=== PATIENT | female | born 1940 | race Caucasian/White ===

== ENCOUNTER → 2019-06-21 11:11 | Outpatient (CLI) | payer MEDICARE, OTHER, SELFPAY ==
--- NOTE | 2019-06-21 11:24 | DI.RAD.S_ITS ---
PROCEDURE: XR LUMBAR SPINE MIN 4V INDICATIONS: Chronic progressive low back pain TECHNIQUE: 5 views of the lumbar spine were acquired. COMPARISON: None. FINDINGS: Bones: 5 nonrib-bearing vertebrae are present. There is normal bony alignment. No vertebral body compression fractures. No suspicious bony lesions. Mild to moderate degenerative disc disease is present along the thoracolumbar junction and the lumbosacral spine. There is moderate to moderately severe facet osteoarthritis becoming progressively more prominent through the middle and lower thirds of the lumbosacral spine. Spinal and foraminal stenosis would be expected in this circumstance from L3 inferiorly. Soft tissues: Overlying bowel gas pattern is normal. No suspicious soft tissue calcifications. Oblique images: No pars defects. IMPRESSION: Progressively greater degenerative changes from the middle through the distal thirds of the lumbosacral spine, and both spinal and foraminal stenosis likely is present from L3 inferiorly. Dictated by: Michael Hernandez M.D. on 06/21/2019 at 12:42 Approved by: Michael Hernandez M.D. on 06/21/2019 at 12:43
== END ==
PROVIDERS: PCP Family Medicine; Referring Provider Physical Medicine & Rehabilitation; Visit Provider Physical Medicine & Rehabilitation
DX: M54.5 Low back pain (principal); M51.35 Other intervertebral disc degeneration, thoracolumbar region; M51.37 Other intervertebral disc degeneration, lumbosacral region; M47.817 Spondylosis without myelopathy or radiculopathy, lumbosacral region; G89.29 Other chronic pain
CPT/HCPCS: 72110

== ENCOUNTER → 2019-07-01 17:00 | Outpatient (CLI) | payer MEDICARE, OTHER, SELFPAY ==
--- NOTE | 2019-07-01 17:02 | DI.MRI.S_ITS ---
PROCEDURE: MR LUMBAR SPINE WO CON INDICATIONS: Progressive axial low back pain TECHNIQUE: Noncontrast sagittal T1 spin echo and T2 fast echo, sagittal STIR, axial T1 and T2 fast spin echo through the lumbar spine. In cases with scoliosis, additional coronal T2 fast spin echo may be performed. COMPARISON: None. FINDINGS: Image quality: Excellent. Alignment and Curvature: Mild levocurvature noted. Trace anterolisthesis of L3 on L4 Bone Marrow: Multilevel degenerative endplate sclerosis and spurring. Diffuse facet arthropathy. No acute vertebral body compression fractures. Spinal Cord: Conus medullaris terminates at the L1 level. Visualized cord demonstrates normal signal and size. Paraspinous Soft Tissues: No paravertebral masses. Diffuse lumbar epidural lipomatosis noted. There is severe L3-L4 facet arthropathy with multiple synovial cysts and joint effusions. T2 hyperintense presumed left renal cysts although technically nonspecific. There is nonspecific, dependent posterior subcutaneous soft tissue edema from level of L1-L5. L1-L2: Mild central canal narrowing. Lateral recesses appear grossly patent. L2-L3: Mild central canal narrowing. Partial effacement of both lateral recesses with bilaterally symmetric appearance. Moderate left foraminal stenosis with nerve root compression. No right foraminal narrowing. L3-L4: Severe central canal stenosis. Partial effacement of both lateral recesses with bilaterally symmetric appearance. Severe right foraminal stenosis with nerve root compression. Moderate left foraminal stenosis with questionable nerve root compression L4-L5: Mild central canal narrowing. Partial effacement of both lateral recesses with bilaterally symmetric appearance. Mild bilateral foraminal stenosis. L5-S1: Mild central canal narrowing. Partial effacement of both lateral recesses with bilaterally symmetric appearance. No foraminal stenoses IMPRESSION: Diffuse lumbar spondylosis and facet arthropathy. Mild levocurvature. Trace anterolisthesis of L3 on L4 Severe L3-L4 central canal stenosis, and subarticular narrowing bilaterally. Multilevel bilateral foraminal stenoses, as detailed above most pronounced at L2-L3 (left) and L3-L4 (right greater than left. Dictated by: Nico Hayden M.D. on 07/02/2019 at 11:24 Approved by: Nico Hayden M.D. on 07/02/2019 at 11:32
== END ==
PROVIDERS: PCP Family Medicine; Referring Provider Physical Medicine & Rehabilitation; Visit Provider Physical Medicine & Rehabilitation
DX: M54.5 Low back pain (principal); M47.816 Spondylosis without myelopathy or radiculopathy, lumbar region; M48.061 Spinal stenosis, lumbar region without neurogenic claudication
CPT/HCPCS: 72148

== ENCOUNTER → 2019-07-18 14:31 | Outpatient (CLI) | payer MEDICARE, OTHER, SELFPAY ==
--- NOTE | 2019-07-18 | DI.NM.S_ITS ---
PROCEDURE: NM KIM PERF SPECT SINGLE STUDY Exercise myocardial perfusion SPECT with gated imaging and ejection fraction RADIOPHARMACEUTICAL: 25.1 mCi Tc-99m sestamibi IV at peak exercise. INDICATIONS: Syncope and collapse TECHNIQUE: Radiopharmaceutical was injected at peak stress test. SPECT images were obtained, with perfusion images in short axis, horizontal long axis, and vertical long axis views. Gated images were reviewed using Glopho software. COMPARISON: None. CARDIAC STRESS: A pharmaceutical nuclear stress test was obtained using lexiscan 0.4mg IV X1. Hemodynamic data: Symptoms: Patient denied anginal chest pain during exercise. EKG: No diagnostic changes of ischemia; no ectopy. FINDINGS: Raw data: There is good labeling of myocardium by radiotracer. No significant motion artifacts. Nsad-qz-ivnqd ratio is 0.48 (normal is less than 0.38 for sestamibi tracer, and less than 0.50 for thallium tracer). Left ventricular function: Gated images demonstrate normal left ventricle wall thickening. No segmental wall motion abnormalities. Left ventricle end diastolic volume is 74 mL. Left ventricle stress ejection fraction is 76%; normal values are above 45%. Myocardial perfusion: There is normal distribution of activity in the left and right ventricular myocardium, without focal perfusion defects. IMPRESSION: Low risk, normal pharmaceutical nuclear stress test. Consider Echo to rule out valvular heart disease given elevated vbtr-ik-ruvvt ratio. 1) No perfusion evidence of ischemia or infarction. 2) Normal left ventricular size, wall motion, and systolic function (EF post stress 76%). 3) No ECG evidence of ischemia. 4) No angina during the study. 5) No prior nuclear stress test available for comparison. Dictated by: Carla So MD on 07/18/2019 at 17:43 Approved by: Carla So MD on 07/18/2019 at 17:46
--- NOTE | 2019-07-18 15:48 | PM.TREADMILL ---
Cardiac Stress Test Report Referral & Results Date Patient Seen: 07/18/19 Time Patient Seen: 15:49 Requesting provider: Moody Regalado Indication: syncope and collapse Rest ECG: sinus rhythm Procedure Note: After Lexiscan injection had minimal dyspnea, no chest discomfort Baseline ECG sinus rhythm No significant ST changes on ECG after Lexiscan injection; no ectopy No reversal agent needed Impression: Normal Lexiscan stress test Please note: Actual ECG tracings can be found in the PACS system.
== END ==
PROVIDERS: PCP Family Medicine; Referring Provider Family Medicine; Visit Provider Family Medicine
DX: R55 Syncope and collapse (principal)
CPT/HCPCS: 78451; 93017; A9502; J2785

== ENCOUNTER → 2019-10-11 15:47 | Outpatient (CLI) | payer MEDICARE, OTHER, SELFPAY ==
[2019-10-11 16:08] LABS: Bacteria Urine None Seen; RBC Urine None Seen (0-5/HPF)
[2019-10-11 16:42] LABS: Appearance Urine UA CLEAR; Bilirubin Urine UA NEGATIVE (NEGATIVE); Color Urine UA YELLOW; Glucose Urine UA NEGATIVE (Negative); Ketones Urine UA NEGATIVE (NEGATIVE); Leukocyte Esterase Urine UA 3+ (NEGATIVE); Nitrite Urine UA NEGATIVE (Negative); Occult Blood Urine UA TRACE-LYSED (Negative); Protein Urine UA NEGATIVE (Negative); Urobilinogen Urine UA 0.2 E.U./dL (0.2)
[2019-10-11 16:45] LABS: Add Manual Diff / Slide Review NO; Basophils Absolute Auto 100 /uL (0-100); Basophils Percent Auto 1.3 % (0-2); Eosinophils Absolute Auto 200 /uL (0-450); Eosinophils Percent Auto 2.9 % (2-4); Hematocrit 42.9 % (36-46); Hemoglobin 14.6 g/dL (12.0-16.0); Lymphocytes Absolute Auto 2000 /uL (1100-4500); Lymphocytes Percent Auto 24.4 % (25-40); Mean Corpuscular Hemoglobin 32.2 PG (26-34); Mean Corpuscular Volume 94.8 fL (80-100); Monocytes Absolute Auto 700 /uL (0-900); Neutrophils Absolute Auto 5200 /uL (1500-7000); Neutrophils Percent Auto 63.4 % (50-75); Platelet Count 288 X10^3/uL (150-400); Red Blood Cell Count 4.53 X10^6/uL (4.0-5.2); Red Cell Distribution Width 13.6 % (11.6-14.8); White Blood Cell Count 8.2 X10^3/uL (4.5-11.0)
[2019-10-11 16:46] LABS: Culture Indicated Urine Specimen Cultured; WBC Urine 10-30/HPF (0-5/HPF)
[2019-10-11 16:52] LABS: Hemoglobin A1C% w Est Avg Glu 4.9 % (4.0-6.0)
[2019-10-11 17:10] LABS: BUN Creatinine Ratio 14.9 (6-22); Blood Urea Nitrogen 17 mg/dL (7-17); Calcium 10.1 mg/dL (8.4-10.2); Carbon Dioxide 21 mmol/L (22-32); Chloride 105 mmol/L (98-107); Estimated Glomerular Filt Rate 45.9 mL/min (>60); Glucose 91 mg/dL (80-110); HEMOLYSIS < 15 (0-50); Potassium 4.3 mmol/L (3.4-5.1); Sodium 136 mmol/L (137-145)
== END ==
PROVIDERS: PCP Family Medicine; Referring Provider Orthopaedic Surgery; Visit Provider Orthopaedic Surgery
DX: Z01.818 Encounter for other preprocedural examination (principal); R73.9 Hyperglycemia, unspecified; N39.0 Urinary tract infection, site not specified
CPT/HCPCS: 36415; 80048; 81001; 83036; 85025; 87086; 93005

== ENCOUNTER → 2019-10-13 14:04 | Outpatient (CLI) | payer MEDICARE, OTHER, SELFPAY ==
[2019-10-14 02:38] LABS: COVID19 Sendout Not Detected (Not Detect)
== END ==
PROVIDERS: PCP Family Medicine; Visit Provider Physician Assistant
DX: Z01.812 Encounter for preprocedural laboratory examination (principal)
CPT/HCPCS: 87635

== ENCOUNTER 2019-10-16 06:09 | Inpatient (IN) | payer MEDICARE, OTHER, SELFPAY ==
[2019-10-15 07:34] VITALS: BMI 38.1
[2019-10-16] VITALS (15 sets, daily range): BP systolic 99–141; BP diastolic 51–91; PULSE 50–77; RESP 11–20; TEMP 35.6–36.8; O2SAT 92–98; BMI 38.1
--- NOTE | 2019-10-16 | DI.RAD.S_ITS ---
PROCEDURE: XR PELVIS 1-2V INDICATIONS: INNER OP TECHNIQUE: Intra-operative view of the pelvis and hip acquired. COMPARISON: None. FINDINGS: Bones: Intraoperative devices prior to placement of arthroplasty prostheses are in expected positions. No fractures or suspicious bony lesions. Soft tissues: Overlying surgical retractors are present, along with other intraoperative changes. IMPRESSION: Normal intraoperative examination. Dictated by: Jimmy Stout M.D. on 10/16/2019 at 8:29 Approved by: Jimmy Stout M.D. on 10/16/2019 at 8:29
--- NOTE | 2019-10-16 06:00 | DI.RAD.S_ITS ---
PROCEDURE: XR HIP W PEL IF DONE LT 2V INDICATIONS: ALEXANDER TECHNIQUE: AP pelvis and lateral view of the left hip acquired. COMPARISON: [facility] [place], CR, XR PELVIS WITH LATERAL HIP LEFT, 07/17/2019, 14:43. [facility], CR, XR PELVIS 1-2V, 10/16/2019, 9:00. FINDINGS: Bones: Patient is status post left hip arthroplasty, with hardware components in expected positions. The hip joint appears congruent. The visualized bony structures appear intact. Soft tissues: Overlying postoperative changes are noted. No suspicious soft tissue densities. Left surgical drain. IMPRESSION: Satisfactory appearance of the left hip total arthroplasty. Dictated by: El Allen M.D. on 10/16/2019 at 10:31 Approved by: El Allen M.D. on 10/16/2019 at 10:33
[2019-10-16] MEDS: PREGABALIN 75 MG CAPSULE PO (07:02)
[2019-10-16] MEDS: CELECOXIB 200 MG CAPSULE PO (07:02)
[2019-10-16] MEDS: ACETAMINOPHEN 325 MG TABLET 975 MG PO (07:02)
[2019-10-16] MEDS: VANCOMYCIN 1,000 MG/200 ML PIGGYBACK 200 MG IV (07:26)
[2019-10-16] MEDS: LACTATED RINGERS 1,000 ML 42 ML IV ×2 (07:27→10:22)
--- NOTE | 2019-10-16 07:37 | PM.PREOP ---
Pre-operative Note COVID-19 COVID-19 status: Negative Interval Note History & Physical reviewed/Exam performed by Physician: Yes Changes to H&P: No
--- NOTE | 2019-10-16 07:37 | PM.OP.1 ---
Operative Date/Time/Diagnoses Date of procedure: 10/16/19 Time of procedure: 07:57 Pre-op diagnosis: Severe left hip OA Post-op diagnosis: same Procedure & Clinicians Procedure: Left total hip arthroplasty posterior approach Same procedure as scheduled: Yes Indications: The patient has had progressively worsening left hip pain with radiographic changes consistent with arthritis. Non-operative management has failed and the patient has requested total hip replacement. The risks, benefits and alternatives to surgery were discussed with the patient prior to proceeding. Risks discussed included, but were not limited to, failure to relieve pain, leg length discrepancy, dislocation, stiffness, infection, nerve damage, deep venous thrombosis, pulmonary embolism, stroke, coma, heart attack, permanent paralysis and , as well as the potential need for eventual revision of the prosthetic. Surgeon: Marcy Cohn Supervisor Laboratory Animal Facility: [facility] Anesthesia Type: General and Spinal Operative Notes Findings: Severe left hip OA, good stability, slightly soft bone Closure Type: primary Specimen(s): none sent Prosthetic devices, grafts, tissues, transplants, or devices: 52 mm R3 Cohn [employer] Nephew cup, size 6 standard offset anthology, +0 by 36 head Applied: drain(s) Estimated Blood Loss (mL): 250 Blood products transfused: none Procedure in detail: The patient was seen in the pre-operative area, where the patient identified the left hip as the operative site and this was marked with my initials. The patient received pre-operative antibiotics and was taken to the operating room and placed on the operative table in the right lateral decubitus position after satisfactory anesthesia. A timekeeper supervisor out was performed. The left leg was prepared from the ankle to the iliac crest with ChloroPrep in the usual fashion and draped through sterile drapes. The hip was approached through an approximately 20 cm incision centered over the greater trochanter and curving gently posteriorly as it went proximally. This was carried sharply to the fascia binh, which was divided and retracted with a self retaining retractor. The trochanteric bursa was excised with care being taken to avoid the sciatic nerve, which was identified and protected throughout the case. The short external rotators were incised and the capsulomuscular flap was raised and tagged for later repair. The hip was dislocated, and a femoral neck osteotomy performed approximately 15 mm above the lesser trochanter. Retractors were placed around the femur. The canal was opened with a box cutting osteotome, followed by a T handled reamer and a lateralizing reamer. The chili pepper broach was then used, followed by sequential broaching until there was good stability of the broach in the femur. Retractors were placed to expose the acetabulum. The labrum and central soft tissues were removed. Reaming was performed initially going up in 2 mm increments, then 1 mm increments until good bite was obtained with an odd sized reamer. The cup 1 mm larger than the last reamer was then inserted using the appropriate anteversion guides. A trial neutral liner was placed. The broach was placed in the canal. A trial head and neck were then placed and the hip relocated and checked for leg length and stability. An intraoperative film confirmed the component position and no evidence of fracture. The patient was stable in the position of sleep, of squatting, and could be put through a range of motion with 45 degrees internal rotation without dislocation. At 90 degrees flexion, internal rotation to 80 was possible before dislocation. This was felt to be satisfactory and the appropriate components were opened, and the trials were removed. The acetabular liner was impacted into position. The final stem was then impacted into the prepared femoral canal. The hip was meticulously irrigated with normal saline. Finally the femoral head was impacted onto the stem. The acetabulum was cleared of all material and the hip relocated one final time. The capsulomuscular flap was then repaired to the greater trochanter though an awl hole using the tag sutures. The short external rotators were repaired with a nonabsorbable suture. A deep drain was placed and brought out anteriorly. The fascia binh was closed with Vicryl. The subcutaneous layer was closed with barbed sutures and SteriStrips. An Aquacel Ag dressing was applied and the patient was taken to recovery having tolerated the procedure well. Complications: none Post-operative Condition: stable Disposition: Acute Care Plan for aftercare: The patient will be maintained on a standard total hip replacement protocol with weight bearing as tolerated and posterior hip precautions. The patient will receive Aspirin and sequential compression devices for DVT prophylaxis. The patient will be discharged home when safe for the home environment.
[2019-10-16] MEDS: CEFAZOLIN 2 GM/100 ML FROZ.PIGGY IV ×3 (08:05→23:59)
--- NOTE | 2019-10-16 08:31 | SUR.OPER ---
Lateral on padded OR bed. Gel axillary roll. Arms secured on padded armboard with pillow supporting top arm. Padded hip positioner braces x4 - anterior and posterior chest and pelvis. Additional gel pad used anterior pelvis. Gel pad under bottom leg from knee to foot and secured with tape over sheet.
[2019-10-16] MEDS: BUPIVACAINE LIPOSOME 266 MG/20 ML VIAL INJ (08:43)
[2019-10-16] MEDS: BUPIVACAINE 0.25% W/ EPI 30 ML VIAL 60 ML INJ (08:43)
[2019-10-16] MEDS: TRANEXAMIC ACID 1,000 MG VIAL 2000 MG INJ ×2 (08:44→09:30)
--- NOTE | 2019-10-16 11:00 | SUR.PHASEI ---
Patient taken up to room 212 with all belongings. Left in stable condition with receiving RN at bedside.
[2019-10-16] MEDS: LACTATED RINGERS 1,000 ML 125 ML IV ×2 (11:38→20:07)
--- NOTE | 2019-10-16 11:54 | PC.NURSE ---
Pt to room 212 via bed from PACU post-L. ALEXANDER. Pt denies pain, nausea, or shortness of breath. Pt states her legs both still feel a bit numb but she is able to lift both legs and wiggle her toes. Pt oriented to room, call light, bed controls, and tv controls. Bed alarm on-Pt agrees to not get up without assistance. Encouraged deep breathing exercises and ankle waves. SCD's on and running. Initally Pt had moderately severe shivering but that has now stopped after application of warm blankets. Pt denies needs at this time and agrees to call for assistance as needed.
[2019-10-16] MEDS: IBUPROFEN 400 MG TABLET PO ×4 (12:47→23:59)
[2019-10-16] MEDS: ACETAMINOPHEN 325 MG TABLET 650 MG PO ×2 (14:03→20:06)
[2019-10-16] MEDS: OXYCODONE IR 5 MG TABLET PO (14:03)
--- NOTE | 2019-10-16 15:15 | PT.IIE ---
Current Diagnoses Unilateral primary osteoarthritis, left hip (10/16/19) Surgery Performed Operation Date: 10/16/19 07:45 Actual Procedures p Total Hip Arthroplasty(Left) - Marcy Cohn MD Surgical History (Last Updated 10/15/19 @ 08:10 by Hannah Reynaga RN) H/O: hysterectomy (Acute) History of arthroplasty of left knee (Acute) History of arthroplasty of right knee (Acute) History of cholecystectomy (Acute) Hx of bilateral cataract extraction (Acute) Hx of dilation and curettage (Acute) Medical History (Last Updated 10/15/19 @ 08:14 by Hannah Reynaga RN) Acid reflux (Acute) Degenerative joint disease (DJD) of hip (Acute) Easy bruisability (Acute) Facet arthropathy, lumbosacral (Acute) First degree AV block (Acute) Gait instability (Acute) HLD (hyperlipidemia) (Acute) HTN (hypertension) (Acute) Lumbar stenosis (Acute) Postural hypotension (Acute) Shortness of breath (Acute) Syncopal episodes (Acute) Physical Therapy Inpatient Evaluation/Re-Eval M1 PT/OT-IP Prior Functional Status Start: 10/16/19 17:50 Freq: NEEDED Status: Active Protocol: Document 10/16/19 15:15 AB (Rec: 10/16/19 18:12 AB [id number]) Medical Review Prior Functional Status Medical History Reviewed Yes Communication able to make needs known but requires time to respond and to complete tasks; pt stated that she is oozy from the medications Mobility and Gait pt stated that she is modified independent with all mobilities and ambulation without AD but has been using a SPC for the last 2 weeks due to L hip pain Social History Household Members family,other Living Arrangements House Number of Floors (Floors) 3 or More Floors Number of Stairs To Enter/Railing? has no step to enter from the garage: brother stays on this level has 7 steps with L rail ascending to get to kitchen level and has another 7 steps with R rail ascending to bedroom level. Home Environment High Toilet,Walk in Shower Home Equipment Front Wheel Walker,Four Wheel Walker,Straight Cane,Raised Toilet Seat w/Armrests,Shower Seat without Backrest,Hand Held Shower,Eyelet Riveter Employment Status Retired Additional Social History Comment pt stated her brother will be able to help her at home but prefers that no assistance with dressing, toileting and showering needs M2 PT-IP Current Condition Start: 10/16/19 17:50 Freq: NEEDED Status: Active Protocol: Document 10/16/19 15:15 AB (Rec: 10/16/19 18:12 AB [id number]) Physical Therapy Current Condition Current Condition Evaluation Date 10/16/19 Treatment Diagnosis s/o L ALEXANDER posterior approach; difficulty in walking Onset Date 10/16/19 Precautions Posterior Hip Precautions No Hip Flexion > 90 degrees,No Hip Internal Rotation,No Hip Adduction Weight Bearing Status Weight Bearing Status Weight Bear as Tolerated Allowed Weight Bearing Amount (enter % LLE WBAT or #) (%) M3 PT-IP Subjective Start: 10/16/19 17:50 Freq: NEEDED Status: Active Protocol: Document 10/16/19 15:15 AB (Rec: 10/16/19 18:12 AB [id number]) Subjective Physical Therapy Visit Type Type Initial Evaluation Visit Start Time 15:15 Visit Stop Time 16:03 Total Visit Minutes 48 Number of ENGLISH INSTRUCTOR Visits 0 Physical Therapy Visit Comments Patient Comments agreeable to do PT Therapy Pain Assessment Pain When Pain Assessed At Rest Pain Present Pain Present Pain Reported Location Left Hip Intensity 5 Scale Used Numeric (0 - 10) Pain Management Techniques Apply Cold,Modification of Treatment,Re-positioning, Timing of Activity with Medications M4 PT-IP Mobility and Gait Start: 10/16/19 17:50 Freq: NEEDED Status: Active Protocol: Document 10/16/19 15:15 AB (Rec: 10/16/19 18:12 AB [id number]) PT-Bed Mobility Assessment Supine to Sit Supine to Sit Standby Assistance,1 Person Assistance PT-Transfer Assessment Sit to and From Stand Sit to and from Stand Minimal Assistance,1 Person Assistance,Use of Upper Extremities Equipment Transfer Assistive Device Gait Belt,Front Wheeled Walker Orthotic/Prosthetic Devices or Brace: No Transfers Transfer Destination Toilet Transfer Technique ambulated using FWW Transfer Ability Level of Assist Minimal Assistance,1 Person Assistance,Use of Upper Extremities Comments Mobility Comments reviewed posterior hip precautions with pt and pt requires cues to recall. pt stated that she feels foggy and oozy due to the medications. completed supine to sit SBA and pt was able to sit on EOB CGA. pt tends to cross her LE and needs constant reminders regarding her hip precautions. completed sit to stand min A and cues and ambulated using FWW to the toilet min A and cues. required mod A for sit to stand from the toilet using grab bar and pt again has to be reminded of her hip precautions. pt ambulated back to the bed. completed sit to supine SBA and positioned in bed. call light and table placed within reach. Gait Assessment Gait Gait Assistance Required: Minimum Assistance,1 Person Assist Distance (Feet) 12 Able to Maintain Weight Bearing Status Yes During Gait Assistive Devices Assistive Device Gait Belt,Front Wheeled Walker Orthotic/Prosthetic Devices or Brace: No Gait Deviations General Gait Pattern Antalgic,Decreased Stride Length,Decreased Feet Clearance Factors Limiting Gait Function Factors Limiting Gait Function Decreased Activity Tolerance, Decreased Strength,Difficulty Following Directions,Limited Range of Motion,Pain,Poor Balance,Poor Safety Awareness Comments Gait Comments pls refer to mobility section for details PT-Balance Assessment Sitting Balance and Reactions Static Sitting Balance Ability Good Dynamic Sitting Balance Ability Fair Standing Balance and Reactions Static Standing Balance Ability Fair Dynamic Standing Balance Ability Poor Device Used FWW M5 PT-IP Objective Assessments Start: 10/16/19 17:50 Freq: NEEDED Status: Active Protocol: Document 10/16/19 15:15 AB (Rec: 10/16/19 18:12 AB [id number]) Orientation Orientation/Cognition Level of Alertness Alert Orientation Name,Place,Situation Safety Awareness Decreased Safety Awareness Memory Description Short Term Impaired Gross Range of Motion Lower Extremity ROM Assessment Within Functional Limits Strength Lower Extremity Strength Assessment Left Impaired Hip 3+/5 Knee 4-/5 Sensation Assessment Sensation Gross Sensation WNL Muscle Tone Muscle Tone WNL Yes M6 PT-IP Treatment Start: 10/16/19 17:50 Freq: NEEDED Status: Active Protocol: Document 10/16/19 15:15 AB (Rec: 10/16/19 18:12 AB [id number]) Physical Therapy Treatment Exercises Exercises Quad Sets,Heel Slides Education Education Provided Precautions,Weight Bearing Status,Post-Op Packet,Safety M7 PT-IP Assessment and Plan Start: 10/16/19 17:50 Freq: NEEDED Status: Active Protocol: Document 10/16/19 15:15 AB (Rec: 10/16/19 18:12 AB [id number]) PT Summary Assessment and Plan Potential Rehabilitation Potential Good Status of Condition at Evaluation Evolving Summary Impairments Pain,ROM,Strength,Balance, Coordination,Sensation,Tone, Cognition,Bed Mobility, Transfers,Gait,Activity Tolerance Assessment Summary pt s/p L ALEXANDER posterior approach completed today. pt unable to recall hip precautions and requires constant reminders. pt stated that her brother will be able to assist her but she does not want him to help her with her toileting, dressing and shower needs. will have to assess pt further for safe d/c plan but pt may require SNF rehab as pt currently requires assist and max cues with all mobilities. pt also has 14 steps to get to bedroom level and will need to complete safely if pt goes home. Goals Bed Mobility Goal Independent Transfer Goal Independent,Front Wheeled Walker Gait Goal Independent,Front Wheel Walker Gait Distance 150 Other Goals up/down 7 steps R rail + 7 steps L rail ascending CGA Days to Meet Goals 5 Frequency of Treatment Frequency Of Treatment Twice a Day Treatment Plan Physical Therapy Treatment Plan Bed Mobility Training,Transfer Training,Gait Training, Therapeutic Exercise,Balance Retraining,Post Op Education, Discharge Planning,Hot or Cold Pack,Neuromuscular Re-ed, Coordination Retraining,Manual Therapy Recommendations To Nursing Amount of Assist Needed 1 Person Assist Discharge Recommendations PT Discharge Recommendations Home with 24/7 Assist,Home Health,SNF Rehab Other Discharge Recommendations depending on progress: SNF vs home with 24/7 and homehealth PT Transportation Needs at Discharge Private Vehicle,Wheelchair/ Cabulance
[2019-10-16] MEDS: DOCUSATE 100 MG CAPSULE PO (20:06)
[2019-10-16] MEDS: ASPIRIN EC 81 MG TABLET PO (20:06)
--- NOTE | 2019-10-16 21:42 | PC.NURSE ---
pt's pain is controlled. pain 05/10. 1pa-fww to BR. voiding and eliminating without difficulty. dressing cdi. HV 10cc out. call light in reach. bed alarm active.
[2019-10-17] VITALS: BP 122/69; PULSE 65; RESP 16; TEMP 36.9; O2SAT 97
[2019-10-17] MEDS: IBUPROFEN 400 MG TABLET PO ×5 (05:29→20:13)
[2019-10-17 06:06] VITALS: BP 132/62; PULSE 68; RESP 16; TEMP 36.3; O2SAT 95
[2019-10-17 06:16] LABS: Hematocrit 35.9 % (36-46); Hemoglobin 12.5 g/dL (12.0-16.0)
--- NOTE | 2019-10-17 06:16 | PC.NURSE ---
Pt is doing really well. 1p FWW to BR Minimal pain New IV started after Left FA IV infiltrated at start of shift. Bruised and swollen. Elevated on pillow overnight wrapped in warm blanket. Hemovac 100cc sanguinous. B/L SCDs throughout shift
[2019-10-17 08:25] VITALS: BP 122/65; PULSE 60; RESP 18; TEMP 36.6; O2SAT 96
[2019-10-17] MEDS: OXYCODONE IR 5 MG TABLET PO (09:23)
[2019-10-17] MEDS: ACETAMINOPHEN 325 MG TABLET 650 MG PO ×3 (09:24→20:14)
[2019-10-17] MEDS: ASPIRIN EC 81 MG TABLET PO ×2 (09:25→20:14)
[2019-10-17] MEDS: MIDODRINE HCL 5 MG TABLET PO (09:25)
[2019-10-17] MEDS: DOCUSATE 100 MG CAPSULE PO ×2 (09:25→20:13)
--- NOTE | 2019-10-17 10:17 | PC.NURSE ---
Addendum entered by María Elena Hargrove R.N. 10/17/19 13:33: Patients hemovac taken out and pressure dressing applied. She tolerated this well. Sitting up in chair and resting comfortably. Original Note: Assess- Patient is awake and state that her l.hip is having pain when she gets up to move or use the bathroom. Given tylenol, ibuprofen, and Oxycodone, which has been helpful. Her left hip aquacel is WNL. CMS wnl and ppx2. She will be working with physical therapy after a bit.
--- NOTE | 2019-10-17 10:27 | PT.IPTN ---
Current Diagnoses Unilateral primary osteoarthritis, left hip (10/16/19) Surgery Performed Operation Date: 10/16/19 07:45 Actual Procedures p Total Hip Arthroplasty(Left) - Marcy Cohn MD Physical Therapy Treatment Note M2 PT-IP Current Condition Start: 10/16/19 17:50 Freq: NEEDED Status: Active Protocol: Document 10/16/19 15:15 AB (Rec: 10/16/19 18:12 AB [id number]) Physical Therapy Current Condition Current Condition Evaluation Date 10/16/19 Treatment Diagnosis s/o L ALEXANDER posterior approach; difficulty in walking Onset Date 10/16/19 Precautions Posterior Hip Precautions No Hip Flexion > 90 degrees,No Hip Internal Rotation,No Hip Adduction Weight Bearing Status Weight Bearing Status Weight Bear as Tolerated Allowed Weight Bearing Amount (enter % LLE WBAT or #) (%) M3 PT-IP Subjective Start: 10/16/19 17:50 Freq: NEEDED Status: Active Protocol: Document 10/17/19 09:51 SP (Rec: 10/17/19 14:30 SP [id number]) Subjective Physical Therapy Visit Type Type Treatment Note Visit Start Time 09:51 Visit Stop Time 10:27 Total Visit Minutes 24 Number of FAGOT MAKER Visits 1 Physical Therapy Visit Comments Patient Comments agreeable to working with PT. Patient Goals return home with brother and able to ascend stairs to her bedroom but if can't then can stay on main floor (no stairs from outside) and sleep in recliner or her brother's bed for now until stronger to manage stairs. Therapy Pain Assessment Pain When Pain Assessed During Mobility Pain Present Pain Present Pain Reported Location Left Hip Intensity 1 Scale Used Numeric (0 - 10) Pain Management Techniques Apply Cold,Re-positioning, Timing of Activity with Medications M4 PT-IP Mobility and Gait Start: 10/16/19 17:50 Freq: NEEDED Status: Active Protocol: Document 10/17/19 09:51 SP (Rec: 10/17/19 14:30 SP [id number]) PT-Bed Mobility Assessment Supine to Sit Supine to Sit Standby Assistance,1 Person Assistance Sit to Supine Sit to Supine Standby Assistance,1 Person Assistance Scooting Scooting to Edge of Bed Standby Assistance PT-Transfer Assessment Sit to and From Stand Sit to and from Stand Contact Guard Assistance,1 Person Assistance,Use of Upper Extremities Equipment Transfer Assistive Device Gait Belt,Front Wheeled Walker Orthotic/Prosthetic Devices or Brace: No Transfers Transfer Destination Bed,Chair,Wheelchair Transfer Technique ambulated using FWW Transfer Ability Level of Assist Contact Guard Assistance,Use of Upper Extremities Comments Mobility Comments Pt was seated in bed when arrived. Sit to stand CGA using BUE pushing from chair arms then FWW. Step pivot transfer chair to bed using FWW CGA then CGA slow descent onto bed. Sit EOB <>supine using gait belt on LLE to assist leg self into/out of bed then scoot to EOB. Ambulated usuing fWW SBA wtih cuing for increase stride and foot clearance with improvement at distance progressed 20ft to w/c in hallway, good backing up positioning to sit with BUE SBA. FAGOT MAKER wheeled patient to stairs for assessment. Pt unable to advance RLE onto 1st step using LHR and SPC in RUE x3 attempts due to pain in LLE and unsteady (to assimulate home to her bedroom ). Pt stated can stay on main floor sleep in recliner or her brother's bed if have to initally until can do stairs later. FAGOT MAKER will assess again in afternoon. PT ambulated further distance in hallway, cued knee flexion and heel toe gait LLE approx 150 ft using FWW CGA w/c follow but not needed and 3 stop stand rests secondary to decreased strength and endurance. Pt slow descent seated in chair when returned to room sBA using BUE. Pt had allneeds and call light in reach before left. Gait Assessment Gait Gait Assistance Required: Standby Assistance,Contact Guard Assist,1 Person Assist Distance (Feet) 150 Able to Maintain Weight Bearing Status Yes During Gait Assistive Devices Assistive Device Gait Belt,Front Wheeled Walker Orthotic/Prosthetic Devices or Brace: No Gait Deviations General Gait Pattern Antalgic,Decreased Stride Length,Decreased Feet Clearance Factors Limiting Gait Function Factors Limiting Gait Function Decreased Activity Tolerance, Decreased Strength,Limited Range of Motion,Pain,Poor Safety Awareness Comments Gait Comments See mobility comments. Stair Climbing Assessment Comments Stair Climbing Comments Unable to assess secondary to pain and weakness, will attempt at pm tx. PT-Balance Assessment Sitting Balance and Reactions Static Sitting Balance Ability Good Dynamic Sitting Balance Ability Fair Standing Balance and Reactions Static Standing Balance Ability Good Dynamic Standing Balance Ability Fair Device Used FWW M5 PT-IP Objective Assessments Start: 10/16/19 17:50 Freq: NEEDED Status: Active Protocol: Document 10/16/19 15:15 AB (Rec: 10/16/19 18:12 AB [id number]) Orientation Orientation/Cognition Level of Alertness Alert Orientation Name,Place,Situation Safety Awareness Decreased Safety Awareness Memory Description Short Term Impaired Gross Range of Motion Lower Extremity ROM Assessment Within Functional Limits Strength Lower Extremity Strength Assessment Left Impaired Hip 3+/5 Knee 4-/5 Sensation Assessment Sensation Gross Sensation WNL Muscle Tone Muscle Tone WNL Yes M6 PT-IP Treatment Start: 10/16/19 17:50 Freq: NEEDED Status: Active Protocol: Document 10/17/19 09:51 SP (Rec: 10/17/19 14:30 SP [id number]) Physical Therapy Treatment Exercises Exercises Ankle Pumps,Gluteal Sets,Quad Sets,Heel Slides,Seated Knee Flexion/Extension Education Education Provided Precautions,Weight Bearing Status,Post-Op Packet,Safety M7 PT-IP Assessment and Plan Start: 10/16/19 17:50 Freq: NEEDED Status: Active Protocol: Document 10/17/19 09:51 SP (Rec: 10/17/19 14:30 SP [id number]) PT Summary Assessment and Plan Potential Rehabilitation Potential Good Status of Condition at Evaluation Evolving Summary Impairments Pain,ROM,Strength,Balance, Coordination,Sensation,Tone, Cognition,Bed Mobility, Transfers,Gait,Activity Tolerance Assessment Summary Pt had 3/3 recall to hip precautions and good hand placement during session. pt stated that her brother will be able to assist her but she does not want him to help her with her toileting, dressing and shower needs. CGA initally then decreased to sBA during sit<> stand, SBA during gait using fWW, unable to complete stair mgt am will assess in pm . pt also has 14 steps to get to bedroom level and will need to complete safely if pt goes home but stated that can stay on main level in recliner or her brothers bed in the interum until stronger. Goals Bed Mobility Goal Independent Transfer Goal Independent,Front Wheeled Walker Gait Goal Independent,Front Wheel Walker Gait Distance 150 Other Goals up/down 7 steps R rail + 7 steps L rail ascending CGA Days to Meet Goals 5 Frequency of Treatment Frequency Of Treatment Twice a Day Treatment Plan Physical Therapy Treatment Plan Bed Mobility Training,Transfer Training,Gait Training, Therapeutic Exercise,Balance Retraining,Post Op Education, Discharge Planning,Hot or Cold Pack,Neuromuscular Re-ed, Coordination Retraining,Manual Therapy Recommendations To Nursing Amount of Assist Needed 1 Person Assist Discharge Recommendations PT Discharge Recommendations Home with 21/11 Assist,Home Health,SNF Rehab Other Discharge Recommendations Home 21/11, home health Transportation Needs at Discharge Private Vehicle,Wheelchair/ Cabulance
[2019-10-17 12:20] VITALS: BP 137/79; PULSE 77; RESP 16; TEMP 36.8; O2SAT 95
--- NOTE | 2019-10-17 15:06 | PT.IPTN ---
Current Diagnoses Unilateral primary osteoarthritis, left hip (10/16/19) Surgery Performed Operation Date: 10/16/19 07:45 Actual Procedures p Total Hip Arthroplasty(Left) - Marcy Cohn MD Physical Therapy Treatment Note M2 PT-IP Current Condition Start: 10/16/19 17:50 Freq: NEEDED Status: Active Protocol: Document 10/16/19 15:15 AB (Rec: 10/16/19 18:12 AB [id number]) Physical Therapy Current Condition Current Condition Evaluation Date 10/16/19 Treatment Diagnosis s/o L ALEXANDER posterior approach; difficulty in walking Onset Date 10/16/19 Precautions Posterior Hip Precautions No Hip Flexion > 90 degrees,No Hip Internal Rotation,No Hip Adduction Weight Bearing Status Weight Bearing Status Weight Bear as Tolerated Allowed Weight Bearing Amount (enter % LLE WBAT or #) (%) M3 PT-IP Subjective Start: 10/16/19 17:50 Freq: NEEDED Status: Active Protocol: Document 10/17/19 14:33 SP (Rec: 10/17/19 18:20 SP [email or web address]) Subjective Physical Therapy Visit Type Type Treatment Note Visit Start Time 14:33 Visit Stop Time 15:06 Total Visit Minutes 33 Number of COMPOUND WORKER Visits 2 Physical Therapy Visit Comments Patient Comments Pt agreeable to working with PT. I have been doing my leg exercises since earlier this am but I did not go for a walk since. Patient Goals return home with brother and able to ascend stairs to her bedroom but if can't then can stay on main floor (no stairs from outside) and sleep in recliner or her brother's bed for now until stronger to manage stairs. Therapy Pain Assessment Pain When Pain Assessed During Mobility Pain Present Pain Present Pain Reported Location Left Hip Intensity 2 Scale Used Numeric (0 - 10) Pain Management Techniques Apply Cold,Re-positioning, Timing of Activity with Medications M4 PT-IP Mobility and Gait Start: 10/16/19 17:50 Freq: NEEDED Status: Active Protocol: Document 10/17/19 14:33 SP (Rec: 10/17/19 18:20 SP [id number]) PT-Bed Mobility Assessment Supine to Sit Supine to Sit Standby Assistance Sit to Supine Sit to Supine Standby Assistance Scooting Scooting to Edge of Bed Standby Assistance Scooting Up and Down in Bed Standby Assistance PT-Transfer Assessment Sit to and From Stand Sit to and from Stand Standby Assistance,Use of Upper Extremities Equipment Transfer Assistive Device Gait Belt,Front Wheeled Walker Orthotic/Prosthetic Devices or Brace: No Transfers Transfer Destination Bed,Wheelchair Transfer Technique ambulated using FWW Transfer Ability Level of Assist Standby Assistance,Use of Upper Extremities Comments Mobility Comments sPt was elevated supine in bed when arrived. Supine<> sitting HOB flat usign SPC under LLE repositioning herself to EOB and back in bed SBA. Sit <> stand SBA using FWW, ambulated to stairs approx 160 ft using FWW step to initially then post cues for knee flexion heel toe progressed to step over step patterning and decreased UE WB onFWW, sBA and w/c follow. Ascend/descend 6 stairs L HR and SPC in RUE, 3 stairs RHR and SPC in LUE CGA. Pt stated can sit in chair on landing for a rest between 2- 7 stairs flights. Initially cued for Le patterning inital flight then did well on own. Pt stated would like a rest in w/ c back to room. COMPOUND WORKER pushed patient back to room. Pt sit to stand from w/c SBA, ambulated from door around bed approx 20 ft using FWW SBA to sit on bed sitting > supine SBA using SPC to self reposition LLE. Pt had all needs and call light in reach before left. Gait Assessment Gait Gait Assistance Required: Standby Assistance,Contact Guard Assist,1 Person Assist Distance (Feet) 160 Able to Maintain Weight Bearing Status Yes During Gait Assistive Devices Assistive Device Gait Belt,Front Wheeled Walker Orthotic/Prosthetic Devices or Brace: No Gait Deviations General Gait Pattern Antalgic,Decreased Stride Length,Decreased Feet Clearance Factors Limiting Gait Function Factors Limiting Gait Function Decreased Activity Tolerance, Decreased Strength,Limited Range of Motion,Pain,Poor Balance Comments Gait Comments See mobility comments. Stair Climbing Assessment Evaluation Level of Assist On Stairs Contact Guard Assistance,1 Person Assistance Devices Stair Climbing Assistive Devices Straight Cane,Left Railing, Right Railing Technique/Endurance Stair Climbing Direction Ascend and Descend Stair Climbing Technique Step to Step Number of Steps Climbed 3 Stair Climbing Set # Repetitions (reps) 3 Comments Stair Climbing Comments See mobility comments. PT-Balance Assessment Sitting Balance and Reactions Static Sitting Balance Ability Good Dynamic Sitting Balance Ability Fair Standing Balance and Reactions Static Standing Balance Ability Good Dynamic Standing Balance Ability Fair Device Used FWW M5 PT-IP Objective Assessments Start: 10/16/19 17:50 Freq: NEEDED Status: Active Protocol: Document 10/16/19 15:15 AB (Rec: 10/16/19 18:12 AB [id number]) Orientation Orientation/Cognition Level of Alertness Alert Orientation Name,Place,Situation Safety Awareness Decreased Safety Awareness Memory Description Short Term Impaired Gross Range of Motion Lower Extremity ROM Assessment Within Functional Limits Strength Lower Extremity Strength Assessment Left Impaired Hip 3+/5 Knee 4-/5 Sensation Assessment Sensation Gross Sensation WNL Muscle Tone Muscle Tone WNL Yes M6 PT-IP Treatment Start: 10/16/19 17:50 Freq: NEEDED Status: Active Protocol: Document 10/17/19 09:51 SP (Rec: 10/17/19 14:30 SP [id number]) Physical Therapy Treatment Exercises Exercises Ankle Pumps,Gluteal Sets,Quad Sets,Heel Slides,Seated Knee Flexion/Extension Education Education Provided Precautions,Weight Bearing Status,Post-Op Packet,Safety M7 PT-IP Assessment and Plan Start: 10/16/19 17:50 Freq: NEEDED Status: Active Protocol: Document 10/17/19 14:33 SP (Rec: 10/17/19 18:20 SP [id number]) PT Summary Assessment and Plan Potential Rehabilitation Potential Good Status of Condition at Evaluation Evolving Summary Impairments Pain,ROM,Strength,Balance, Coordination,Sensation,Tone, Cognition,Bed Mobility, Transfers,Gait,Activity Tolerance Assessment Summary Pt had 3/3 recall to hip precautions and good hand placement during session. COMPOUND WORKER requested OT orders for ADL equipment education with post hip precautions and shower assessment for assist required at home pre DC. pt stated that her brother will be able to assist her but she does not want him to help her with her toileting, dressing and shower needs. sBA bed mobilitiy, sit<> stand, gait using fWW and stair mgt. Pt has also has 14 steps but has landing to sit and rest after 7th stair to get to bedroom level. Recommending caregiver training tomorrow with brother for stair mgt 14 steps prior to DC, scheduled 11am. Pt will call brother to tell him. Alternative patient stated could sleep in recliner on first level until stronger if needed. At this time recommending home with brother to assist and outpatient therapy vs PT if requires more assist with ADLs and showering. Goals Bed Mobility Goal Independent Transfer Goal Independent,Front Wheeled Walker Gait Goal Independent,Front Wheel Walker Gait Distance 150 Other Goals up/down 7 steps R rail + 7 steps L rail ascending CGA Days to Meet Goals 5 Frequency of Treatment Frequency Of Treatment Twice a Day Treatment Plan Physical Therapy Treatment Plan Bed Mobility Training,Transfer Training,Gait Training, Therapeutic Exercise,Balance Retraining,Post Op Education, Discharge Planning,Hot or Cold Pack,Neuromuscular Re-ed, Coordination Retraining,Manual Therapy Recommendations To Nursing Amount of Assist Needed Standby Assistance Discharge Recommendations PT Discharge Recommendations Home with Assistance,Home Health,Outpatient PT Other Discharge Recommendations Home with assist, home health vs outpatient therapy. Continue to assess. Transportation Needs at Discharge Private Vehicle,Wheelchair/ Cabulance
--- NOTE | 2019-10-17 15:23 | CM.IDA ---
Initial DCP Assessment Note: Patient is an 78 yo female, resident of [place]. patient is POD#1 from hip surgery w/Dr Cohn. PCP: Moody Regalado Payer: [facility] Reviewed chart. Physical therapy team recommending home w/21/11 assistance and HH vs SNF Met w/patient to introduce role and review DCP. Patient feels very apprehensive about going to a intermediate facility d/t the COVID-19 pandemic and is planning w/her brother to return home. This MANAGER LOGISTIC strongly encouraged patient to request her brother attend cg training w/the therapy team and patient agreed her brother could come tomorrow morning. Patient does not feel comfortable having her brother assist her w/bathing/hygiene needs and so needs to be indp in these ADLs before return home. PT/OT seeing patient today Patient agreeable to Home health, we discussed Whid HH PT/OT Placed call to El at [facility], discussed referral and faxed face sheet, signed F2F, HH order, H+P and therapy notes. HH f/u is available Monday10.21.19. P: DC likely home tomorrow or Monday, w/family and [facility] for PT/OT Following closely. TINO Rodriguez
[2019-10-17 15:51] VITALS: BP 127/77; PULSE 70; RESP 18; TEMP 36.1; O2SAT 96
--- NOTE | 2019-10-17 16:25 | PM.PN.1 ---
Subjective Subjective Date Patient Seen: 10/17/19 Time Patient Seen: 11:25 Interval history: Follow also said she may progress with physical therapy today but she did have some difficulty going up and down steps. She has 7 steps at home. She notes moderate posterior buttocks pain. She is doing reasonably well in a chair and get her drain out. Exam Vital Signs (past 8 hours): - 10/17/19 12:20 10/17/19 15:51 Temperature 98.3 F 96.9 F L Pulse Rate 77 70 Respiratory Rate 16 18 Blood Pressure 137/79 127/77 Pulse Oximetry 95 96 Oxygen Delivery Method Room Air Oxygen Flow Rate 0 Narrative Exam Narrative: Alert oriented mobilizing with therapy, no nausea abdomen soft and benign, no pain with range of motion in her hip, dressing dry and intact, calf soft bilaterally Objective Labs Result Diagrams: 10/17/19 05:45 Labs: Laboratory Results - last 24 hr 10/17/19 05:45 Hgb 12.5 Hct 35.9 L Assessment & Plan Assessment & Plan narrative: Progressing with physical therapy but she needs 1 additional day to mobilize as she has 7 steps at home. Plan is to discharge her to home tomorrow.
[2019-10-17 19:45] VITALS: BP 128/72; PULSE 66; RESP 18; TEMP 36.6
[2019-10-17] MEDS: SODIUM CHLORIDE 0.9% FLUSH 10 ML IV (20:35)
[2019-10-18] VITALS: BP 134/82; PULSE 67; RESP 16; TEMP 36.5; O2SAT 96
[2019-10-18] MEDS: IBUPROFEN 400 MG TABLET PO ×3 (00:49→08:24)
[2019-10-18 05:14] VITALS: BP 156/76; PULSE 63; RESP 16; TEMP 36.1; O2SAT 99
--- NOTE | 2019-10-18 08:06 | PC.NURSE ---
Patient aquacel dressing is cdi to chadd. Hemova site wnl, this was pulled yesterday. She is a one person assist to get out of bed and use the bathroom. Physical therapy will work with her today on stairs and she has a family member coming to do some teaching on her care and how to move her. Occupational therapy is also going to give her a shower this morning. She is heplocked, eating well, and taking tylenol and ibuprofen for pain and discomfort.
[2019-10-18 08:24] VITALS: BP 140/79; PULSE 67; RESP 17; TEMP 36.2; O2SAT 97
[2019-10-18] MEDS: MIDODRINE HCL 5 MG TABLET PO (08:24)
[2019-10-18] MEDS: DOCUSATE 100 MG CAPSULE PO (08:25)
[2019-10-18] MEDS: ACETAMINOPHEN 325 MG TABLET 650 MG PO (08:25)
[2019-10-18] MEDS: ASPIRIN EC 81 MG TABLET PO (08:25)
--- NOTE | 2019-10-18 09:53 | OT.IP.EVAL ---
Current Diagnoses Unilateral primary osteoarthritis, left hip (10/16/19) Surgery Performed Operation Date: 10/16/19 07:45 Actual Procedures p Total Hip Arthroplasty(Left) - Marcy Cohn MD Past Medical History (Last Updated 10/15/19 @ 08:14 by Hannah Reynaga RN) Acid reflux (Acute) Degenerative joint disease (DJD) of hip (Acute) Easy bruisability (Acute) Facet arthropathy, lumbosacral (Acute) First degree AV block (Acute) Gait instability (Acute) HLD (hyperlipidemia) (Acute) HTN (hypertension) (Acute) Lumbar stenosis (Acute) Postural hypotension (Acute) Shortness of breath (Acute) Syncopal episodes (Acute) Surgical History (Last Updated 10/15/19 @ 08:10 by Hannah Reynaga RN) H/O: hysterectomy (Acute) History of arthroplasty of left knee (Acute) History of arthroplasty of right knee (Acute) History of cholecystectomy (Acute) Hx of bilateral cataract extraction (Acute) Hx of dilation and curettage (Acute) Occupational Therapy Inpatient Evaluation/Re-Eval M1 PT/OT-IP Prior Functional Status Start: 10/18/19 09:34 Freq: NEEDED Status: Active Protocol: Document 10/18/19 07:58 [facility] (Rec: 10/18/19 09:53 [facility] [id number]) Medical Review Prior Functional Status Medical History Reviewed Yes Communication able to make needs known but requires time to respond and to complete tasks; pt stated that she is oozy from the medications Mobility and Gait pt stated that she is modified independent with all mobilities and ambulation without AD but has been using a SPC for the last 2 weeks due to L hip pain Activities of Daily Living and IADL's Pt states having difficulty with socks otherwise independent with all Adl and IADL needs. Social History Household Members family,other Living Arrangements House Number of Floors (Floors) 3 or More Floors Number of Stairs To Enter/Railing? has no step to enter from the garage: brother stays on this level has 7 steps with L rail ascending to get to kitchen level and has another 7 steps with R rail ascending to bedroom level. Home Environment High Toilet,Walk in Shower Home Equipment Front Wheel Walker,Four Wheel Walker,Straight Cane,Raised Toilet Seat w/Armrests,Shower Seat without Backrest,Hand Held Shower,Lot Boss Employment Status Retired Additional Social History Comment pt stated her brother will be able to help her at home but prefers that no assistance with dressing, toileting and showering needs M2 OT-IP Current Condition Start: 10/18/19 09:34 Freq: Status: Active Protocol: Document 10/18/19 07:58 [facility] (Rec: 10/18/19 09:53 [facility] [id number]) Occupational Therapy Current Condition Current Condition Evaluation Date 10/18/19 Treatment Diagnosis S/P L ALEXANDER, decreased self - care Diagnosis Onset Date 10/16/19 Post Operative Precautions Posterior Hip Precautions No Hip Flexion > 90 degrees,No Hip Internal Rotation,No Hip Adduction Weight Bearing Status Weight Bearing Status Weight Bear as Tolerated M3 OT- IP Subjective and Pain Start: 10/18/19 09:34 Freq: Status: Active Protocol: Document 10/18/19 07:58 [facility] (Rec: 10/18/19 09:53 [id number]) OT- Subjective Occupational Therapy Visit Type Type Initial Evaluation Visit Start Time 07:58 Visit Stop Time 09:26 Total Visit Minutes 67 Notes Pt seem for split session [phone] and then [id number] Occupational Therapy Visit Comments Patient Comments Pt agreed to do OT eval as does not want her brother to assist for ADl needs. Patient/Caregiver Goals TO go home. OT Pain Assessment Pain When Pain Assessed During Mobility Pain Present Pain Present Pain Reported Location Left Hip Intensity 6 M4 OT- IP ADL's Start: 10/18/19 09:34 Freq: Status: Active Protocol: Document 10/18/19 07:58 [facility] (Rec: 10/18/19 09:53 [facility] [id number]) OT [id number] General Evaluation Self-Feeding Ability Independent OT ADL-Grooming General Evaluation Grooming Ability Standby Assistance Areas Needing Assistance Retrieving/Set-up of Grooming Items Comments OT Grooming Comments Pt able to stand with FWW at the sink. OT ADL-Oral Care General Eval Oral Care Ability Independent OT ADL-Dressing General Eval Upper Body Dressing Ability Independent Lower Body Dressing Ability Maximum Assistance Areas Needing Assistance Underpants/Brief,Pants/Shorts, Socks Assistive Devices Dressing Assistive Devices Long Handled Shoe Horn,Lot Boss ,Sock Aid Comments OT Dressing Comments At this time , pt's feet are swollen and not able to get her slip on shoes at this time . Suggested may have to be bare footed at home, or use of non slid socks, or use of her tie shoes and her brother may have to assist with needs. Educated pt for LB dressing equipment and able to use compounder sterile products and sock aid for socks ,underwear and pants with good safety of hip precautions. Suggested for pt to attach the compounder sterile products on the FWW to ensure having it close by all the time. OT ADL-Toileting General Evaluation Toileting Ability Independent Devices Toileting Assistive Devices Commode,Grab Bars Comments OT Toileting Comments Pt able to safely wipe and follow hip precautions. OT ADL-Bathing Bathing Type Bathing Type Shower General Evaluation Bathing Ability Minimal Assistance Areas Needing Assistance Wash/Dry Back Devices Bathing Equipment Long Handled Sponge or [place], Hand Held Shower Sprayer, Shower Chair without Arms,Grab Bars Comments OT Bathing Comments Pt needing assist for her back , suggested to use long thin towel at home. Pt needing MAGALIS for balance and heavy use of grab bar in order to do pericare needs while standing. Suggested as pt does not want her brother there to assist her for hygiene needs. Pt's brother can assist her into the shower with her robe on and then put robe back on after the shower. In addition to have all items close by. Pt still a little unsteady on her feet and for pericare needs may be best to do while standing by the sink at this time. M5 OT- IP IADL's Start: 10/18/19 09:34 Freq: Status: Active Protocol: Document 10/18/19 07:58 [facility] (Rec: 10/18/19 09:53 [id number]) OT-Instrumental Activities of Daily Living Home Safety Awareness Awareness of Need for Assistance at Home Good Awareness Ability to Problem Solve Emergency Able to Problem Solve Situations Home Safety Comments Pt's brother to assist for all iADl needs. Medication Management Medication Management No Deficits Identified Money Management Money Management No Deficits Identified Meal Preparation Meal Preparation Caregiver Provides Assist Colon And Rectal Surgeon Colon And Rectal Surgeon Caregiver Provides Assist Driving Driving Caregiver Provides Assist M6 OT- IP Functional Cognition Start: 10/18/19 09:34 Freq: Status: Active Protocol: Document 10/18/19 07:58 [facility] (Rec: 10/18/19 09:53 [id number]) Cognitive Factors Limiting Selfcare Function Cognitive Ability Level of Alertness Alert Patient Orientation Name,Age,Birthday,Month,Date, Year,Day of Week,Place, Situation Attention Span Ability Capable of Focused Attention, Capable of Sustained Attention Ability to Follow Commands Able to Follow Multi-Step Commands Memory Description No Deficits Noted Safety Awareness Decreased Ability to Apply Precautions Problem Solving Ability No deficits Noted Cognitive Comments Cognitive Assessment Comments Occasionally pt needing reminders to not bend over too far fro her hip precautions. Cognitively, pt at baseline. OT- Vision and Hearing OT- Hearing Assessment OT- Hearing Assessment WFL OT- Vision Assessment Visual Acuity Glasses For Reading M7 OT- IP Mobility and Balance Start: 10/18/19 09:34 Freq: Status: Active Protocol: Document 10/18/19 07:58 [facility] (Rec: 10/18/19 09:53 [id number]) OT- Bed Mobility Assessment Supine to Sit Supine to Sit Assist Standby Assistance,Bedrails Scooting Scooting to Edge of Bed Moderate Assistance OT-Transfer Assessment Sit to and From Stand Sit to and from Stand Standby Assistance,Contact Guard Assistance Transfers Transfer Ability Standby Assistance Technique Transfer Destination Bed,Chair,Shower Stall,Toilet Transfer Technique Stand Step Pivot Devices Transfer Assistive Devices Gait Belt,Front Wheeled Walker Comments Mobility Comments Pt having difficulty to get out of bed and needing to hold to bed rail to assist. In addition needing MODA to scoot forwards. Pt states will probably just sleep in a recliner and have BSC next to her and therefore will be closer to her brother if needing assist. OT- Gait Assessment Comments Gait Ability Comments SBA with FWW, CGA with FWW when stepping over the threshold of the shower. OT- Balance Assessment Sitting Balance and Reactions Static Sitting Balance Ability Normal Dynamic Sitting Balance Ability Good Standing Balance and Reactions Static Standing Balance Ability Good M8 OT- IP Objective Assessments Start: 10/18/19 09:34 Freq: Status: Active Protocol: Document 10/18/19 07:58 [facility] (Rec: 10/18/19 09:53 [id number] OT Gross Range of Motion Upper Extremity Range of Motion Assessment Within Functional Limits OT Strength Upper Extremity Strength Assessment Within Functional Limits OT-Muscle Tone Assessment Muscle Tone WNL Yes M9 OT- IP Assessment and Plan Start: 10/18/19 09:34 Freq: Status: Active Protocol: Document 10/18/19 07:58 [facility] (Rec: 10/18/19 09:53 [facility] [id number]) OT Summary Assessment and Plan Potential Rehabilitation Potential Excellent Analytic Complexity at Evaluation Low Summary OT Impairments Functional Mobility,Bathing, Shower Transfers Progress Towards Goals Progressing Toward Goals Goals Dressing Goal Independent Bathing Goal Independent Shower Transfer Goal Standby Assistance Patient/Caregiver Education Goal Demonstrate Post-Op Precautions Days to Meet Goals 2 Treatment Plan OT Treatment Plan ADL Training,Functional Mobility,Patient/Family Education,Discharge Planning Discharge Recommendations OT Discharge Recommendations Home with Assistance Home Equipment Needs BSC, LB dressing equipment issued Transportation Needs at Discharge Private Vehicle
[2019-10-18 11:11] VITALS: BP 143/91; PULSE 63; RESP 17; TEMP 36.4; O2SAT 98
--- NOTE | 2019-10-18 11:45 | PT.IPTN ---
Current Diagnoses Unilateral primary osteoarthritis, left hip (10/16/19) Surgery Performed Operation Date: 10/16/19 07:45 Actual Procedures p Total Hip Arthroplasty(Left) - Marcy Cohn MD Physical Therapy Treatment Note M2 PT-IP Current Condition Start: 10/16/19 17:50 Freq: NEEDED Status: Discharge Protocol: Document 10/16/19 15:15 [facility] (Rec: 10/16/19 18:12 [facility] [id number]) Physical Therapy Current Condition Current Condition Evaluation Date 10/16/19 Treatment Diagnosis s/o L ALEXANDER posterior approach; difficulty in walking Onset Date 10/16/19 Precautions Posterior Hip Precautions No Hip Flexion > 90 degrees,No Hip Internal Rotation,No Hip Adduction Weight Bearing Status Weight Bearing Status Weight Bear as Tolerated Allowed Weight Bearing Amount (enter % LLE WBAT or #) (%) M3 PT-IP Subjective Start: 10/16/19 17:50 Freq: NEEDED Status: Discharge Protocol: Document 10/18/19 11:10 [facility] (Rec: 10/18/19 14:33 [facility] [email or web address]) Subjective Physical Therapy Visit Type Type Treatment Note Visit Start Time 11:10 Visit Stop Time 11:45 Total Visit Minutes 35 Number of [employer] SAL[employer] MANAGER Visits 3 Physical Therapy Visit Comments Patient Comments Pt agreeable to work w/ therapy and pts brother present for caregiver training . Therapy Pain Assessment Pain When Pain Assessed During Mobility Pain Present Pain Present Pain Reported Location Left Hip Intensity 2 Scale Used Numeric (0 - 10) Pain Management Techniques Re-positioning,Timing of Activity with Medications M4 PT-IP Mobility and Gait Start: 10/16/19 17:50 Freq: NEEDED Status: Discharge Protocol: Document 10/18/19 11:10 [facility] (Rec: 10/18/19 14:33 [facility] [id number]) PT-Bed Mobility Assessment Supine to Sit Supine to Sit Standby Assistance Sit to Supine Sit to Supine Standby Assistance Scooting Scooting to Edge of Bed Standby Assistance Scooting Up and Down in Bed Standby Assistance PT-Transfer Assessment Sit to and From Stand Sit to and from Stand Standby Assistance,Use of Upper Extremities Equipment Transfer Assistive Device Gait Belt,Front Wheeled Walker Orthotic/Prosthetic Devices or Brace: No Transfers Transfer Destination Bed,Chair,Wheelchair Transfer Technique ambulated using FWW Transfer Ability Level of Assist Standby Assistance,Use of Upper Extremities Comments Mobility Comments Pt was in chair upon arrival from therapy. Able to recall all precautions. Pt SBA for scooting to edge of chair and sit<>stand w/ FWW. Pt ambulated to hallway w/ FWW and SBA and transferred to w/c w/ cues to use BUEs to lower into w/c. Pt transported to stairs for stair training in w /c to conserve energy. Pt then completed 3x3 steps before ambulating back to room w/ FWW and CGA. Pt returned to room and performed bed mobility SBA for sit<>sup, repositioning in bed, and sup<>sit. Instructed pt on how to use gait belt to assist LLE into and out of bed. Pt then transferred to chair SBA. Pt and pts brother/caregiver state they both feel safe to return home at this time. Gait Assessment Gait Gait Assistance Required: Standby Assistance,Contact Guard Assist,1 Person Assist Distance (Feet) 200 Able to Maintain Weight Bearing Status Yes During Gait Assistive Devices Assistive Device Gait Belt,Front Wheeled Walker Orthotic/Prosthetic Devices or Brace: No Gait Deviations General Gait Pattern Antalgic,Decreased Stride Length,Decreased Feet Clearance Factors Limiting Gait Function Factors Limiting Gait Function Decreased Activity Tolerance, Decreased Strength,Limited Range of Motion,Pain,Poor Balance Comments Gait Comments Pt ambulated ~200 ft w/ FWW and SBA to CGA provided by pts brother/caregiver. Pts brother able to provide correct cues for equal step length and upright posture. Stair Climbing Assessment Evaluation Level of Assist On Stairs Standby Assistance,Contact Guard Assistance,1 Person Assistance Devices Stair Climbing Assistive Devices Straight Cane,Left Railing, Right Railing Technique/Endurance Stair Climbing Direction Ascend and Descend Stair Climbing Technique Step to Step Number of Steps Climbed 3 Stair Climbing Set # Repetitions (reps) 3 Comments Stair Climbing Comments Pt ascended/descended 3 steps x3 w/ first set CGA provided by this GOL[employer] SAL[employer] MANAGER and 2nd and 3rd set SBA to CGA provided by pts brother/caregiver. Pt used cane and alternate use of R and L rail, d/t rail setup at home. Pt and pts brother state they both feel safe completing steps at home. PT-Balance Assessment Sitting Balance and Reactions Static Sitting Balance Ability Good Dynamic Sitting Balance Ability Fair Standing Balance and Reactions Static Standing Balance Ability Good Dynamic Standing Balance Ability Fair Device Used FWW M5 PT-IP Objective Assessments Start: 10/16/19 17:50 Freq: NEEDED Status: Discharge Protocol: Document 10/16/19 15:15 [facility] (Rec: 10/16/19 18:12 [facility] [id number]) Orientation Orientation/Cognition Level of Alertness Alert Orientation Name,Place,Situation Safety Awareness Decreased Safety Awareness Memory Description Short Term Impaired Gross Range of Motion Lower Extremity ROM Assessment Within Functional Limits Strength Lower Extremity Strength Assessment Left Impaired Hip 3+/5 Knee 4-/5 Sensation Assessment Sensation Gross Sensation WNL Muscle Tone Muscle Tone WNL Yes M6 PT-IP Treatment Start: 10/16/19 17:50 Freq: NEEDED Status: Discharge Protocol: Document 10/18/19 11:10 [facility] (Rec: 10/18/19 14:33 [facility] [id number]) Physical Therapy Treatment Education Education Provided Precautions,Weight Bearing Status,Post-Op Packet,Safety M7 PT-IP Assessment and Plan Start: 10/16/19 17:50 Freq: NEEDED Status: Discharge Protocol: Document 10/18/19 11:10 [facility] (Rec: 10/18/19 14:33 [facility] [email or web address]) PT Summary Assessment and Plan Potential Rehabilitation Potential Good Status of Condition at Evaluation Evolving Summary Impairments Pain,ROM,Strength,Balance, Coordination,Sensation,Tone, Cognition,Bed Mobility, Transfers,Gait,Activity Tolerance Assessment Summary Pt able to recall all precautions. SBA for all bed mobility and transfers. SBA to CGA for ambulation w/ cues for upright posture and equal step length. SBA to CGA for stairs w/ SPC and rail. Completed caregiver training w / pts brother who was able to safely provided cues and appropriate assist. Instructed ot how to use gaitbelt for asssitance of LLE into and out of bed. Pt and ots caregiver state they both feel safe to return home and have outpatient rehab set up. Goals Bed Mobility Goal Independent Transfer Goal Independent,Front Wheeled Walker Gait Goal Independent,Front Wheel Walker Gait Distance 150 Other Goals up/down 7 steps R rail + 7 steps L rail ascending CGA Days to Meet Goals 5 Frequency of Treatment Frequency Of Treatment Twice a Day Treatment Plan Physical Therapy Treatment Plan Bed Mobility Training,Transfer Training,Gait Training, Therapeutic Exercise,Balance Retraining,Post Op Education, Discharge Planning,Hot or Cold Pack,Neuromuscular Re-ed, Coordination Retraining,Manual Therapy Recommendations To Nursing Amount of Assist Needed Standby Assistance Discharge Recommendations PT Discharge Recommendations Home with Assistance,Home Health,Outpatient PT Other Discharge Recommendations Home with assist, home health vs outpatient therapy. Continue to assess. Transportation Needs at Discharge Private Vehicle,Wheelchair/ Cabulance
--- NOTE | 2019-10-18 12:41 | PM.DS.1 ---
History of Present Illness History of Present Illness Date Patient Seen: 10/18/19 Time Patient Seen: 12:41 Chief complaint: 14406 Left Total Hip Arthroplasty *OPB* Narrative: Patient had severe hip arthritis. She was taken the operating room and underwent a left total hip arthroplasty. Discharge Providers Provider Date of admission: 10/16/19 06:09 Discharge Date: 10/18/19 Primary care physician: Moody Regalado DO Consults: 10/16/19 06:00 Consult to Anesthesiology Routine Comment: Consulting Provider: Anesthesiologist Reason for consultation: Regional block for post operative pain control 10/16/19 11:07 Consult to Discharge Planning Routine Comment: Consult to Physical Therapy Evaluate & Treat Comment: Physician Instructions: post op ALEXANDER protocol Consult to Respiratory Therapy Evaluate & Treat Comment: Physician Instructions: Evaluate and treat 10/17/19 09:38 Consult to Occupational Therapy Evaluate & Treat Comment: Physician Instructions: Evaluate and treat 10/17/19 15:19 Consult to Home Health Routine Comment: Reason For Exam: HH Upon DC, start of care 10.21.19 or earlier Discharge provider: Marcy Cohn MD Summary Hospital Course Discharge Diagnosis: Severe left hip OA, morbid obesity Hospital Course: Patient was taken to an operating room she underwent a left total hip arthroplasty. She tolerated the procedure without difficulty. She did have some difficulty mobilizing partially due to deconditioning and her obesity. She was mobilized with physical therapy and was cleared for going up and down her 7 steps at home. She was doing well at the time of discharge. Status at Discharge Cognitive/behavioral status at discharge: oriented Functional status at discharge: uses cane/walker Overall status at discharge: patient is progressing back to baseline Time Spent with Patient Time spent: Less than 30 minutes Exam Vital Signs (past 8 hours): - 10/18/19 05:14 10/18/19 08:24 10/18/19 11:11 Temperature 96.9 F L 97.2 F L 97.5 F L Pulse Rate 63 67 63 Respiratory Rate 16 17 17 Blood Pressure 156/76 H 140/79 143/91 H Pulse Oximetry 99 97 98 Oxygen Delivery Method Room Air Oxygen Flow Rate 0 Narrative Exam Narrative: Calfs are soft bilaterally, minimal pain with range of motion in her hip, leg lengths are symmetrical, dressings intact Objective Labs Result Diagrams: 10/17/19 05:45 Discharge Plan Discharge Plan Patient Disposition: Home Discharge orders & Medications Prescriptions: New polyethylene glycol 3350 17 gram Powder In Packet 17 gm PO DAILY PRN (Reason: Constipation) Qty: 30 RF: 0 aspirin 81 mg Tablet,Delayed Release (Dr/Ec) 81 mg PO BID Qty: 60 RF: 0 docusate sodium [DOK] 100 mg Capsule 100 mg PO BID Qty: 30 RF: 0 oxycodone 5 mg Tablet 5 mg PO Q3HR PRN (Reason: Pain, Moderate (4-6)) Qty: 30 RF: 0 Continued midodrine 5 mg Tablet 5 mg PO DAILY RF: 0 acetaminophen [Tylenol Extra Strength] 500 mg Tablet 500 mg PO BID RF: 0 aspirin 81 mg Tablet,Chewable 81 mg PO DAILY RF: 0 Follow up/Referrals: Moody Regalado DO [Primary Care Provider] - Marcy Cohn MD [Physician] - Diet/Activity/Treatments Diet: Diet as Tolerated Cold/Heat Therapy: Ice hip multiple times a day. Skin/Wound/Dressing Care Report to your healthcare provider any signs of infection, such as:: chills, fever, night sweats, increased pain, unusual drainage and unusual redness Dressing: Leave dressing on, okay to shower Visit Report/Discharge Packet Instructions: DI for Hip Replacement, DI for Prescription Opioid Use, Oxycodone Visit Report Forms: Patient Portal/API, Stroke Signs & Symptoms Discharge Data Primary Care Provider: Moody Regalado
== END 2019-10-18 13:00 | disposition home health service (06) | DRG 470 ==
LOC: OR 06:19 → AC 06:21
PROVIDERS: Admitting Provider Orthopaedic Surgery; PCP Family Medicine; Referring Provider Physical Medicine & Rehabilitation; Visit Provider Orthopaedic Surgery
PROC: 0SRB0JZ Replacement of Left Hip Joint with Synthetic Substitute, Open Approach (ICD-10-PCS; CPT 27130; principal; 2019-10-16 07:45)
DX: M16.12 Unilateral primary osteoarthritis, left hip (principal); E66.9 Obesity, unspecified; Z68.38 Body mass index [BMI] 38.0-38.9, adult; Z96.653 Presence of artificial knee joint, bilateral; I10 Essential (primary) hypertension; K21.9 Gastro-esophageal reflux disease without esophagitis; E78.5 Hyperlipidemia, unspecified; Z01.812 Encounter for preprocedural laboratory examination; Z11.59 Encounter for screening for other viral diseases
CPT/HCPCS: 36415; 72170; 73502; 85014; 85018; 87635; 97116; 97162; 97165; 97530; 97535; C1776; C9290; J0690; J2250; J2405; J2704; J3010

== ENCOUNTER → 2023-07-19 12:19 | Outpatient (CLI) | payer MEDICARE, OTHER, SELFPAY ==
[2019-10-16 11:12] VITALS: BMI 38.1
[2023-07-19 13:23] LABS: Appearance Urine UA CLEAR; Bilirubin Urine UA NEGATIVE (NEGATIVE); Color Urine UA YELLOW; Glucose Urine UA NEGATIVE (Negative); Ketones Urine UA TRACE (NEGATIVE); Leukocyte Esterase Urine UA 2+ (NEGATIVE); Nitrite Urine UA NEGATIVE (Negative); Occult Blood Urine UA 1+ (Negative); Protein Urine UA NEGATIVE (Negative); Urobilinogen Urine UA 0.2 E.U./dL (0.2)
[2023-07-19 13:37] LABS: Add Manual Diff / Slide Review NO; Basophils Absolute Auto 100 /uL (0-100); Basophils Percent Auto 0.7 % (0-2); Eosinophils Absolute Auto 200 /uL (0-450); Eosinophils Percent Auto 2.3 % (2-4); Hematocrit 44.2 % (36-46); Hemoglobin 14.9 g/dL (12.0-16.0); Lymphocytes Absolute Auto 1200 /uL (1100-4500); Lymphocytes Percent Auto 14.6 % (25-40); Mean Corpuscular HGB Conc 33.8 % (30-36); Mean Corpuscular Hemoglobin 31.8 PG (26-34); Mean Corpuscular Volume 94.2 fL (80-100); Monocytes Absolute Auto 800 /uL (0-900); Monocytes Percent Auto 8.8 % (3-14); Neutrophils Absolute Auto 6300 /uL (1500-7000); Neutrophils Percent Auto 73.6 % (50-75); Platelet Count 300 X10^3/uL (150-400); Red Blood Cell Count 4.69 X10^6/uL (4.0-5.2); White Blood Cell Count 8.5 X10^3/uL (4.5-11.0); pH Urine UA 5.5 (4.5-8.0)
[2023-07-19 13:38] LABS: Bacteria Urine Few (2-10); Culture Indicated Urine Specimen Cultured; RBC Urine 1-5/HPF (0-5/HPF); Squamous Epithelial Cell Urine 1-5 /HPF (0-5/HPF); Urine Volume 10mL (spun); WBC Urine 5-10/HPF (0-5/HPF)
[2023-07-19 13:52] LABS: Hemoglobin A1C% w Est Avg Glu 5.1 % (4.0-6.0)
[2023-07-19 14:19] LABS: BUN Creatinine Ratio 23.3 (6-22); Blood Urea Nitrogen 24 mg/dL (7-17); Calcium 9.8 mg/dL (8.4-10.2); Carbon Dioxide 24 mmol/L (22-32); Chloride 109 mmol/L (98-107); Estimated Glomerular Filt Rate 54 mL/min (>60); Glucose 89 mg/dL (80-110); HEMOLYSIS < 15 (0-50); Potassium 4.7 mmol/L (3.4-5.1); Sodium 141 mmol/L (137-145)
== END ==
PROVIDERS: PCP Family Medicine; Referring Provider Orthopaedic Surgery; Visit Provider Orthopaedic Surgery
DX: Z01.818 Encounter for other preprocedural examination (principal); R73.9 Hyperglycemia, unspecified; Z01.812 Encounter for preprocedural laboratory examination; N39.0 Urinary tract infection, site not specified
CPT/HCPCS: 36415; 80048; 81001; 83036; 85025; 87077; 87086; 87186; 93005

== ENCOUNTER 2023-09-01 16:11 | Emergency (ER) | payer MEDICARE, OTHER, SELFPAY ==
[2019-10-16 11:12] VITALS: BMI 38.1
[2023-09-01] VITALS (14 sets, daily range): BP systolic 174–198; BP diastolic 77–90; PULSE 42–75; RESP 12–24; O2SAT 93–98; BMI 36.9
--- NOTE | 2023-09-01 16:23 | DI.RAD.S_ITS ---
PROCEDURE: XR CHEST 1V INDICATIONS: chest pain TECHNIQUE: One view of the chest was acquired. COMPARISON: None. FINDINGS: Surgical changes and devices: None. Lungs and pleura: Lungs are clear. No pleural effusions or pneumothorax. Mediastinum: Mediastinal contours appear normal. Heart size is enlarged. Bones and chest wall: No suspicious bony lesions. Overlying soft tissues appear unremarkable. Moderate to severe bilateral glenohumeral osteoarthritis. Eventration of the right hemidiaphragm. IMPRESSION: No acute cardiopulmonary abnormality is seen. Dictated by: Taran Harp M.D. on 09/01/2023 at 16:50 Approved by: Taran Harp M.D. on 09/01/2023 at 16:50
[2023-09-01 16:38] LABS: Add Manual Diff / Slide Review NO; Basophils Absolute Auto 100 /uL (0-100); Basophils Percent Auto 0.6 % (0-2); Eosinophils Absolute Auto 200 /uL (0-450); Eosinophils Percent Auto 2.2 % (2-4); Hematocrit 42.4 % (36-46); Hemoglobin 14.3 g/dL (12.0-16.0); Lymphocytes Absolute Auto 1800 /uL (1100-4500); Lymphocytes Percent Auto 19.4 % (25-40); Mean Corpuscular HGB Conc 33.8 % (30-36); Mean Corpuscular Hemoglobin 31.8 PG (26-34); Mean Corpuscular Volume 94.1 fL (80-100); Monocytes Absolute Auto 800 /uL (0-900); Monocytes Percent Auto 8.4 % (3-14); Neutrophils Absolute Auto 6600 /uL (1500-7000); Neutrophils Percent Auto 69.4 % (50-75); Platelet Count 282 X10^3/uL (150-400); White Blood Cell Count 9.5 X10^3/uL (4.5-11.0)
[2023-09-01 16:48] LABS: Prothrombin Time 11.1 SECONDS (9.4-12.5)
[2023-09-01 16:50] LABS: PTT Partial Thromboplastin Tim 35 SECONDS (25.1-36.5)
[2023-09-01 16:54] LABS: Alanine Aminotransferase 14 IU/L (<35); Albumin 4.7 g/dL (3.5-5.0); Albumin Globulin Ratio 1.6 (1.0-2.8); Alkaline Phosphatase 82 U/L (38-126); Aspartate Aminotransferase 22 IU/L (14-36); BUN Creatinine Ratio 14.3 (6-22); Bilirubin Total 0.8 mg/dL (0.2-1.3); Blood Urea Nitrogen 14 mg/dL (7-17); Calcium 9.5 mg/dL (8.4-10.2); Carbon Dioxide 23 mmol/L (22-32); Chloride 105 mmol/L (98-107); Creatine Kinase 50 U/L (30-135); Estimated Glomerular Filt Rate 57 mL/min (>60); Globulin 2.9 g/dL (1.7-4.1); Glucose 93 mg/dL (80-110); HEMOLYSIS < 15 (0-50); Lipase 103 U/L (23-300); Sodium 137 mmol/L (137-145); Total Protein 7.6 g/dL (6.3-8.2)
[2023-09-01 17:05] LABS: NT-proBNP (BNP-Adult 18+) 1280 pg/mL (<450); Troponin I < 0.012 ng/mL (0.01-0.034)
--- NOTE | 2023-09-01 18:28 | ED.ARRPALP ---
HPI - Arrhythmia/Palpitations General Chief Complaint: Arrhythmia/Palpitations Stated Complaint: sent by EDUARDA BOUDREAUX possible Heart Attack Time Seen by Provider: 09/01/23 17:52 Source: patient Mode of arrival: Wheelchair History of Present Illness HPI narrative: 82-year-old female presents by private vehicle from home for shortness of breath. Patient states that for the last several days whenever she exerts herself or sleeps at night she sometimes wakes up in the middle of the night short of breath. She sleeps on her side. She went to the walk-in clinic where an EKG found incidental atrial fibrillation and she was referred to the emergency department for additional workup and treatment. Patient denies known history of heart problems or atrial fibrillation. She states that her previous primary physician retired to [place], and she never followed up with her new assigned PCP because she has felt well and did not feel the need for medical care. Related Data Home Medications Medication Instructions Recorded Confirmed acetaminophen 500 mg tablet 500 mg PO BID 10/15/19 10/16/19 (Tylenol Extra Strength) midodrine 5 mg tablet 5 mg PO DAILY 10/15/19 10/16/19 Previous Rx's Medication Instructions Recorded polyethylene glycol 3350 17 gram 17 gm PO DAILY PRN Constipation 10/17/19 oral powder packet #30 ea apixaban 5 mg tablet (Eliquis) 5 mg PO BID #30 tabs 09/01/23 metoprolol succinate 25 mg capsule 12.5 mg (1/2 x 25 mg) PO DAILY #30 09/01/23 sprinkle, ext. release 24 hr ea (Kapspargo Sprinkle) metoprolol succinate 25 mg 12.5 mg (1/2 x 25 mg) PO DAILY #30 09/01/23 tablet,extended release 24 hr tabs Allergies Allergy/AdvReac Type Severity Reaction Status Date / Time iodine Allergy Severe Hives Verified 09/01/23 16:22 Penicillins Allergy Unknown Pt does Verified 09/01/23 16:22 not know reaction Review of Systems Review of Systems Narrative: See HPI Patient History Medical History Easy bruisability Acid reflux First degree AV block Shortness of breath HLD (hyperlipidemia) HTN (hypertension) Postural hypotension Syncopal episodes Gait instability Lumbar stenosis Facet arthropathy, lumbosacral Degenerative joint disease (DJD) of hip Surgical History Hx of dilation and curettage Hx of bilateral cataract extraction History of arthroplasty of left knee History of arthroplasty of right knee History of cholecystectomy H/O: hysterectomy Family History Father Enlarged heart Mother Diabetes mellitus Hypertension Brother Heart attack Grandfather Heart attack Social History marital status: number of children: 4 household members: family and other Smoking Status: Never smoker alcohol intake: never Smoking Status: Never smoker alcohol intake frequency: 0-2 drinks per day Substance Use Type: does not use Exam Initial Vital Signs Initial Vital Signs: Vital Signs Pulse Rate 42 L 09/01/23 16:18 Respiratory Rate 18 09/01/23 16:18 Blood Pressure 198/90 H 09/01/23 16:18 Pulse Oximetry 97 09/01/23 16:18 Oxygen Delivery Method Room Air 09/01/23 16:18 Const: Awake, alert, no acute distress, nontoxic appearing Cardiac: Irregularly irregular rhythm RESP: unlabored, clear bilaterally, no wheezing GI: Soft, nontender, nondistended, no rebound, no guarding MSK: Atraumatic, full range of motion, pulses equal, no edema Skin: Warm, Dry, intact, no rashes Neuro: AO x3, CN II-XII grossly intact, moves all extremities Course Orders Ordered: ED Orders 09/01/23 16:23 XR chest 1V Stat EKG-12 Lead Stat 09/01/23 16:31 BNP [NT-proBNP (BNP-Adult 18+)] Stat Complete Blood Count AUTO DIFF Stat Comprehensive Metabolic Panel Stat Lipase Stat Magnesium Stat PTT Partial Thromboplastin [place] Stat Prothrombin Time INR Stat Troponin & CK Cardiac Panel Stat 09/01/23 18:09 Trop I [Troponin I] Stat Discontinued Medications Apixaban (Apixaban 5 Mg Tablet) 5 mg PO NOW ONE Stop: 09/01/23 18:45 Last Admin: 09/01/23 18:59 Dose: 5 mg Documented By: BRYANT Vital Signs Vital signs: Vital Signs - 8 hr 09/01/23 16:30 09/01/23 16:30 09/01/23 17:00 Pulse Rate 68 66 Respiratory Rate 19 17 Blood Pressure 182/77 H Pulse Oximetry 95 94 Oxygen Delivery Method 09/01/23 17:01 09/01/23 17:01 09/01/23 17:30 Pulse Rate 70 63 Respiratory Rate 12 24 Blood Pressure 174/81 H Pulse Oximetry 95 96 Oxygen Delivery Method 09/01/23 17:31 09/01/23 17:31 09/01/23 17:46 Pulse Rate 63 63 Respiratory Rate 23 19 Blood Pressure 182/81 H Pulse Oximetry 97 97 Oxygen Delivery Method Room Air 09/01/23 17:46 09/01/23 18:00 09/01/23 18:00 Pulse Rate 66 Respiratory Rate 22 Blood Pressure 183/79 H 184/79 H Pulse Oximetry 97 Oxygen Delivery Method 09/01/23 18:30 09/01/23 18:31 09/01/23 18:31 Pulse Rate 66 75 Respiratory Rate 22 21 Blood Pressure 186/89 H Pulse Oximetry 97 98 Oxygen Delivery Method 09/01/23 18:59 09/01/23 18:59 09/01/23 19:00 Pulse Rate 69 68 Respiratory Rate 22 20 Blood Pressure 196/87 H Pulse Oximetry 97 Oxygen Delivery Method Room Air MDM - Arrhythmia/Palpitations Differential Diagnosis Differential diagnosis: Likely palpitations, anxiety and sinus tachycardia Lab Data 09/01/23 16:31 09/01/23 16:31 Labs: Lab Results 09/01/23 09/01/23 Range/Units 16:31 18:09 WBC 9.5 (4.5-11.0) X10^3/uL RBC 4.50 (4.0-5.2) X10^6/uL Hgb 14.3 (12.0-16.0) g/dL Hct 42.4 (36-46) % MCV 94.1 (80-100) fL MCH 31.8 (26-34) PG MCHC 33.8 (30-36) % RDW 14.0 (11.6-14.8) % Plt Count 282 (150-400) X10^3/uL Neut % (Auto) 69.4 (50-75) % Lymph % (Auto) 19.4 L (25-40) % [place] % (Auto) 8.4 (3-14) % Eos % (Auto) 2.2 (2-4) % Baso % (Auto) 0.6 (0-2) % Neut # (Auto) 6600 (8926-5645) /uL Lymph # (Auto) 1800 (0645-8604) /uL [place] # (Auto) 800 (0-900) /uL Eos # (Auto) 200 (0-450) /uL Baso # (Auto) 100 (0-100) /uL PT 11.1 (9.4-12.5) SECONDS INR 1.0 (0.9-1.3) APTT 35 (25.1-36.5) SECONDS Sodium 137 (137-145) mmol/L Potassium 4.0 (3.4-5.1) mmol/L Chloride 105 (98-107) mmol/L Carbon Dioxide 23 (22-32) mmol/L BUN 14 (7-17) mg/dL Creatinine 0.98 (0.52-1.04) mg/dL Estimated GFR 57 L (>60) mL/min BUN/Creatinine Ratio 14.3 (6-22) Glucose 93 (80-110) mg/dL Calcium 9.5 (8.4-10.2) mg/dL Magnesium 2.0 (1.6-2.3) mg/dL Total Bilirubin 0.8 (0.2-1.3) mg/dL AST 22 (14-36) IU/L ALT 14 (<35) IU/L Alkaline Phosphatase 82 (38-126) U/L Total Creatine Kinase 50 (30-135) U/L Troponin I < 0.012 < 0.012 (0.01-0.034) ng/mL NT-Pro-B Natriuret Pep 1280 H (<450) pg/mL Total Protein 7.6 (6.3-8.2) g/dL Albumin 4.7 (3.5-5.0) g/dL Globulin 2.9 (1.7-4.1) g/dL Albumin/Globulin Ratio 1.6 (1.0-2.8) Lipase 103 (23-300) U/L Imaging Data Chest x-ray: Radiologist's Impresson: PROCEDURE: XR CHEST 1V INDICATIONS: chest pain TECHNIQUE: One view of the chest was acquired. COMPARISON: None. FINDINGS: Surgical changes and devices: None. Lungs and pleura: Lungs are clear. No pleural effusions or pneumothorax. Mediastinum: Mediastinal contours appear normal. Heart size is enlarged. Bones and chest wall: No suspicious bony lesions. Overlying soft tissues appear unremarkable. Moderate to severe bilateral glenohumeral osteoarthritis. Eventration of the right hemidiaphragm. IMPRESSION: No acute cardiopulmonary abnormality is seen. Dictated by: Taran Harp M.D. on 09/01/2023 at 16:50 Approved by: Taran Harp M.D. on 09/01/2023 at 16:50 [facility] Narrative Medical decision making narrative: Incidentally found atrial fibrillation. Rate controlled, unknown duration of onset. Patient states that she had an EKG 1 month ago in preparation for a hip replacement surgery scheduled to take place in September that was normal. Patient could have new onset AFib in the last month or this could be paroxysmal in nature. Not a candidate for cardioversion at this time. Patient states she has no known medical history and does not normally take medications. Laboratory work is reviewed, she has mild elevation in BNP, however she does not appear to be clinically volume overloaded, lungs are clear to auscultation bilaterally, saturating well on room air, hemodynamically stable. Patient informed of her diagnosis of atrial fibrillation, we will start on Eliquis as well as a low-dose beta-diana. Patient's heart rate has been in the 60s to 70s since she has been in the emergency department, she states she was sensitive to medications, and so initial dose of 12.5 mg. Cardiology referral provided Discharge Plan Departure Patient Disposition: Home Clinical Impression: Atrial fibrillation Instructions: DI for Atrial Fibrillation Activity Restrictions/Additional Instructions: Your EKG showed you have atrial fibrillation. This can put you at increased risk for heart failure and strokes. To help decrease this risk you are being placed on a low dose heart rate medication and a blood thinner called Eliquis. It was very important that you follow up with a client service consultant and your primary care physician for your atrial fibrillation. If you have any major accidents or injuries or hit her head while you are on Eliquis he will need to come to the emergency department for evaluation. You may notice increased bruising. Prescriptions: New [place] Sprinkle 25 mg capsule,sprinkle,ER 24hr 12.5 mg PO DAILY Qty: 30 0RF Eliquis 5 mg tablet 5 mg PO BID Qty: 30 0RF metoprolol succinate 25 mg tablet extended release 24 hr 12.5 mg PO DAILY Qty: 30 0RF No Action midodrine 5 mg Tablet 5 mg PO DAILY acetaminophen [Tylenol Extra Strength] 500 mg Tablet 500 mg PO BID polyethylene glycol 3350 17 gram Powder In Packet 17 gm PO DAILY PRN (Reason: Constipation) Qty: 30 0RF Referrals: Miscellaneous,DoctorMD [Primary Care Provider] - Carla oS MD [Physician] - Stand Alone Forms: Patient Portal/API
[2023-09-01 18:44] LABS: Troponin I < 0.012 ng/mL (0.01-0.034)
[2023-09-01] MEDS: APIXABAN 5 MG TABLET PO (18:59)
== END 2023-09-01 19:21 | disposition home or self-care (01) ==
PROVIDERS: Emergency Medicine; Emergency Provider Emergency Medicine
DX: I48.91 Unspecified atrial fibrillation (principal); R07.9 Chest pain, unspecified; Z79.01 Long term (current) use of anticoagulants
CPT/HCPCS: 36415; 71045; 80053; 82550; 83690; 83735; 83880; 84484; 85025; 85610; 85730; 93005; 99284

== ENCOUNTER 2023-09-10 23:15 | Emergency (ER) | payer MEDICARE, OTHER, SELFPAY ==
[2019-10-16 11:12] VITALS: BMI 38.1
[2023-09-10 23:31] VITALS: BP 175/82; PULSE 58; RESP 18; TEMP 35.8; O2SAT 96; BMI 35.2
[2023-09-11] VITALS (8 sets, daily range): BP systolic 150–195; BP diastolic 67–86; PULSE 57–69; RESP 16–200; TEMP 36.3; O2SAT 96–98
--- NOTE | 2023-09-11 01:25 | DI.RAD.S_ITS ---
PROCEDURE: XR CHEST 2V INDICATIONS: chest pain TECHNIQUE: 2 views of the chest were acquired. COMPARISON: [facility], CR, XR CHEST 1V, 09/01/2023, 16:29. FINDINGS: Surgical changes and devices: None. Lungs and pleura: Upper lobe cephalization. Erin B lines suspected. Question trace right pleural effusion. No pneumothorax. Mediastinum: Mediastinal contours are unchanged. Asymmetric elevation of the right hemidiaphragm. Heart size is prominent. Bones and chest wall: No suspicious bony abnormalities. Soft tissues appear unremarkable. IMPRESSION: Mild fluid overload/CHF. Dictated by: El Allen M.D. on 09/11/2023 at 1:49 Approved by: El Allen M.D. on 09/11/2023 at 1:52
[2023-09-11 02:49] LABS: Add Manual Diff / Slide Review NO; Basophils Absolute Auto 400 /uL (0-100); Basophils Percent Auto 3.6 % (0-2); Eosinophils Absolute Auto 200 /uL (0-450); Eosinophils Percent Auto 2.4 % (2-4); Hematocrit 41.5 % (36-46); Hemoglobin 14.3 g/dL (12.0-16.0); Lymphocytes Absolute Auto 1100 /uL (1100-4500); Lymphocytes Percent Auto 10.7 % (25-40); Mean Corpuscular HGB Conc 34.5 % (30-36); Mean Corpuscular Volume 92.8 fL (80-100); Monocytes Absolute Auto 600 /uL (0-900); Neutrophils Absolute Auto 7800 /uL (1500-7000); Neutrophils Percent Auto 77.3 % (50-75); Platelet Count 289 X10^3/uL (150-400); Red Blood Cell Count 4.47 X10^6/uL (4.0-5.2); Red Cell Distribution Width 14.4 % (11.6-14.8); White Blood Cell Count 10.1 X10^3/uL (4.5-11.0)
[2023-09-11 02:55] LABS: INR 1.2 (0.9-1.3); Prothrombin Time 14.1 SECONDS (9.4-12.5)
[2023-09-11 02:58] LABS: PTT Partial Thromboplastin Tim 39 SECONDS (25.1-36.5)
[2023-09-11 03:05] LABS: Alanine Aminotransferase 12 IU/L (<35); Albumin 4.6 g/dL (3.5-5.0); Albumin Globulin Ratio 1.6 (1.0-2.8); Alkaline Phosphatase 71 U/L (38-126); Aspartate Aminotransferase 21 IU/L (14-36); BUN Creatinine Ratio 21.9 (6-22); Bilirubin Total 0.5 mg/dL (0.2-1.3); Blood Urea Nitrogen 21 mg/dL (7-17); Calcium 9.5 mg/dL (8.4-10.2); Carbon Dioxide 23 mmol/L (22-32); Chloride 105 mmol/L (98-107); Creatine Kinase 43 U/L (30-135); Estimated Glomerular Filt Rate 58 mL/min (>60); Globulin 2.9 g/dL (1.7-4.1); Glucose 100 mg/dL (80-110); HEMOLYSIS < 15 (0-50); Lipase 149 U/L (23-300); Magnesium 2.2 mg/dL (1.6-2.3); Sodium 137 mmol/L (137-145); Total Protein 7.5 g/dL (6.3-8.2)
[2023-09-11 03:16] LABS: Troponin I < 0.012 ng/mL (0.01-0.034)
--- NOTE | 2023-09-11 04:15 | ED_ITS ---
HPI - Abdominal Pain General Chief Complaint: Abdominal Pain Stated Complaint: chest pain Time Seen by Provider: 09/11/23 04:15 Source: patient Mode of arrival: Ambulatory History of Present Illness HPI narrative: 82-year-old female with three days duration epigastric area sharp discomfort (points to epigastrium), worse with inspiration, no injury or trauma. History of remote cholecystectomy, history of atrial fibrillation on chronic anticoagulation, also prior EGD showing gastritis, no longer taking antacid medications regularly. No injury trauma new activities. No black or red stools. No nausea or vomiting. She has tried Tums in the past which has helped acid related symptoms, she did try Tums recently but not helping. She notices that the pain is worse if she lays right lateral position, somewhat improved in upright position, a little worse supine. He can not think of anything else that makes it better or makes it worse. She denies dysuria or frequency of urination. She denies shortness of breath. She denies fevers or chills. No known previous coronary artery disease or coronary interventions. No history of blood clots to legs or lungs known. She is still taking her Eliquis anticoagulation, denies missed doses Related Data Home Medications Medication Instructions Recorded Confirmed acetaminophen 500 mg tablet 500 mg PO BID 10/15/19 10/16/19 (Tylenol Extra Strength) midodrine 5 mg tablet 5 mg PO DAILY 10/15/19 10/16/19 Previous Rx's Medication Instructions Recorded polyethylene glycol 3350 17 gram 17 gm PO DAILY PRN Constipation 10/17/19 oral powder packet #30 ea apixaban 5 mg tablet (Eliquis) 5 mg PO BID #30 tabs 09/01/23 metoprolol succinate 25 mg capsule 12.5 mg (1/2 x 25 mg) PO DAILY #30 09/01/23 sprinkle, ext. release 24 hr ea (Kapspargo Sprinkle) metoprolol succinate 25 mg 12.5 mg (1/2 x 25 mg) PO DAILY #30 09/01/23 tablet,extended release 24 hr tabs omeprazole 20 mg capsule,delayed 20 mg PO DAILY upper abdominal 09/11/23 release pain 30 days #30 caps Allergies Allergy/AdvReac Type Severity Reaction Status Date / Time iodine Allergy Severe Hives Verified 09/01/23 16:22 Penicillins Allergy Unknown Pt does Verified 09/01/23 16:22 not know reaction Patient History Medical History Easy bruisability Acid reflux First degree AV block Shortness of breath HLD (hyperlipidemia) HTN (hypertension) Postural hypotension Syncopal episodes Gait instability Lumbar stenosis Facet arthropathy, lumbosacral Degenerative joint disease (DJD) of hip Surgical History Hx of dilation and curettage Hx of bilateral cataract extraction History of arthroplasty of left knee History of arthroplasty of right knee History of cholecystectomy H/O: hysterectomy Family History Father Enlarged heart Mother Diabetes mellitus Hypertension Brother Heart attack Grandfather Heart attack Social History marital status: number of children: 4 household members: family and other Smoking Status: Never smoker alcohol intake: never Smoking Status: Never smoker alcohol intake frequency: 0-2 drinks per day Substance Use Type: does not use Exam Initial Vital Signs Initial Vital Signs: Vital Signs Temperature 96.5 F L 09/10/23 23:31 Pulse Rate 58 L 09/10/23 23:31 Respiratory Rate 18 09/10/23 23:31 Blood Pressure 175/82 H 09/10/23 23:31 Pulse Oximetry 96 09/10/23 23:31 Oxygen Delivery Method Room Air 09/10/23 23:31 Const General: cooperative HENMT Head: atraumatic Face and sinus: face symmetric Eyes Eyelids: eyelids normal Conjunctivae: conjunctivae normal Sclera: sclerae normal Neck Neck: trachea midline Resp Effort & Inspection: normal respiratory effort, able to speak in complete sentences, no respiratory distress and no use of accessory muscles Auscultation: no rhonchi GI Inspection: non-distended Palpation: No guarding Other: Epigastric area tenderness on palpation, no guarding or rebound, no bruit obvious on auscultation Back/Spine/Pelvis Back: No CVA tenderness Skin General: no rashes or lesions noted Neuro General: patient alert and patient oriented x3 Extrem General: full ROM and no clubbing, cyanosis or edema Course Orders Ordered: Discontinued Medications Aspirin (Aspirin 81 Mg Chew Tab) 324 mg PO NOW ONE Stop: 09/11/23 01:27 Last Admin: 09/11/23 05:26 Dose: Not Given Documented By: AB Famotidine (Famotidine 20 Mg/2 Ml Vial) 20 mg IV NOW SHEREEN Sodium Chloride (Normal Saline 0.9%) 1,000 mls @ 1,000 mls/hr IV BOLUS ONE Stop: 09/11/23 05:44 Last Admin: 09/11/23 05:27 Dose: Not Given Documented By: AB Vital Signs Vital signs: Vital Signs - 8 hr 09/10/23 23:31 09/11/23 02:41 09/11/23 03:43 Temperature 96.5 F L 97.4 F L Pulse Rate 58 L 58 L Respiratory Rate 18 18 Blood Pressure 175/82 H 150/67 H Pulse Oximetry 96 97 Oxygen Delivery Method Room Air 09/11/23 04:00 09/11/23 04:01 09/11/23 04:01 Temperature Pulse Rate 57 L 57 L Respiratory Rate 200 H Blood Pressure 179/76 H Pulse Oximetry 97 98 Oxygen Delivery Method 09/11/23 04:30 09/11/23 04:31 09/11/23 04:31 Temperature Pulse Rate 57 L 57 L Respiratory Rate Blood Pressure 184/86 H Pulse Oximetry 98 98 Oxygen Delivery Method 09/11/23 05:00 09/11/23 06:35 Temperature Pulse Rate 60 69 Respiratory Rate 18 16 Blood Pressure 195/81 H Pulse Oximetry 97 96 Oxygen Delivery Method Room Air MDM - Abdominal Pain Lab Data 09/11/23 02:25 09/11/23 02:25 Labs: Lab Results 09/11/23 Range/Units 02:25 WBC 10.1 (4.5-11.0) X10^3/uL RBC 4.47 (4.0-5.2) X10^6/uL Hgb 14.3 (12.0-16.0) g/dL Hct 41.5 (36-46) % MCV 92.8 (80-100) fL MCH 32.0 (26-34) PG MCHC 34.5 (30-36) % RDW 14.4 (11.6-14.8) % Plt Count 289 (150-400) X10^3/uL Neut % (Auto) 77.3 H (50-75) % Lymph % (Auto) 10.7 L (25-40) % [place] % (Auto) 6.0 (3-14) % Eos % (Auto) 2.4 (2-4) % Baso % (Auto) 3.6 H (0-2) % Neut # (Auto) 7800 H (9385-1685) /uL Lymph # (Auto) 1100 (8876-3535) /uL [place] # (Auto) 600 (0-900) /uL Eos # (Auto) 200 (0-450) /uL Baso # (Auto) 400 H (0-100) /uL PT 14.1 H (9.4-12.5) SECONDS INR 1.2 (0.9-1.3) APTT 39 H (25.1-36.5) SECONDS Sodium 137 (137-145) mmol/L Potassium 4.0 (3.4-5.1) mmol/L Chloride 105 (98-107) mmol/L Carbon Dioxide 23 (22-32) mmol/L BUN 21 H (7-17) mg/dL Creatinine 0.96 (0.52-1.04) mg/dL Estimated GFR 58 L (>60) mL/min BUN/Creatinine Ratio 21.9 (6-22) Glucose 100 (80-110) mg/dL Calcium 9.5 (8.4-10.2) mg/dL Magnesium 2.2 (1.6-2.3) mg/dL Total Bilirubin 0.5 (0.2-1.3) mg/dL AST 21 (14-36) IU/L ALT 12 (<35) IU/L Alkaline Phosphatase 71 (38-126) U/L Total Creatine Kinase 43 (30-135) U/L Troponin I < 0.012 (0.01-0.034) ng/mL Total Protein 7.5 (6.3-8.2) g/dL Albumin 4.6 (3.5-5.0) g/dL Globulin 2.9 (1.7-4.1) g/dL Albumin/Globulin Ratio 1.6 (1.0-2.8) Lipase 149 (23-300) U/L ECG Data Attestation: I personally reviewed and interpreted this ECG as follows: Interpretation: Narrow complex regular rhythm, unclear if junctional or very small P wave, with ventricular rate of 55, no obvious ST segment elevation or depression changes, [facility] Narrative Medical decision making narrative: Elderly female with epigastric pain for 3 days, somewhat pleuritic component, prior gastritis no longer taking antacids, remote cholecystectomy, screening labs including white blood cell count and liver functions and lipase unremarkable. We discussed CT abdomen pelvis imaging, initially considered IV contrast our possible contrast allergy, also would consider CTA chest, but pulmonary embolus less likely on Eliquis. CT abdomen and pelvis study done noncontrast. CT abdomen and pelvis noncontrast study. History of possible dye allergy, noncontrast study chosen. Impressions: ?Mild cardiomegaly. Small right pleural effusion. Small right hiatal hernia. Mild right-sided pelvic caliectasis/hydronephrosis without definite source of obstructive stone or perinephric fat stranding, 2 mm calcification posterolateral to the right aspect of the urinary bladder seems more likely to be due to a phlebolith. 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 Query median arcuate ligament syndrome.? See dictated report Radiology, Dr. Jeffrey Copy of report provided for patient. Hiatal hernia noted, consider reflux, gastritis, ulcer, other acid related pathology. Trial of omeprazole for now. Other abnormalities small right pleural effusion and right-sided mild hydronephrosis discussed, as well as the aneurysmal changes celiac access that could be suggestive median arcuate ligament syndrome. Follow up PCP for these abnormalities, unclear if related to acute symptoms now. Patient seems more comfortable. Discharge with . Return precautions discussed. Trial of omeprazole antacid therapy. Critical Care Time Critical Care Time Critical Care Time: Yes Total Critical Care Time: 35 Attestation: The high probability of a clinically significant, sudden or life threatening deterioration of the [GI, cardiovascular] system(s) required my full and direct attention, intervention and personal management. The aggregate critical care time was [35] minutes. This time is in addition to time spent performing reported procedures but includes the following: [x] Data Review and interpretation [x] Patient assessment and monitoring of vital signs [x] Documentation [x] Medication orders and management Discharge Plan Departure Patient Disposition: Home Clinical Impression: Abdominal pain Qualifiers: Abdominal location: epigastric Qualified Code(s): R10.13 - Epigastric pain Activity Restrictions/Additional Instructions: Upper abdominal discomfort with mild tenderness on exam, history of previous gastritis, not really taking regular antacids recently. CT abdomen and pelvis imaging showed no acute obvious changes, did show hiatal hernia, which might be associated with gastroesophageal reflux and epigastric pain. Some thickening of the vessels near the celiac axis were noted, suspicious for arcuate ligament syndrome, this was pointed out on your CT scan report, copy provided, may or may not be related to the abdominal pain, but can more further workup as an outpatient for now. Trial of omeprazole antacids suggested for now. Follow up with your regular doctor for other findings on the CT scan report mentioned, such as dilation of the ureter on 1 side that not necessarily related to your current symptoms, no stone or lesion was found within the ureter. Consider upper endoscopy and follow-up, discuss with your regular provider. Take omeprazole trial for now. Return to this/nearest emergency department for any change worsening symptoms or any concerns for Prescriptions: New omeprazole 20 mg capsule,delayed release(DR/EC) 20 mg PO DAILY 30 Days Qty: 30 0RF No Action midodrine 5 mg Tablet 5 mg PO DAILY acetaminophen [Tylenol Extra Strength] 500 mg Tablet 500 mg PO BID polyethylene glycol 3350 17 gram Powder In Packet 17 gm PO DAILY PRN (Reason: Constipation) Qty: 30 0RF Kapspargo Sprinkle 25 mg capsule,sprinkle,ER 24hr 12.5 mg PO DAILY Qty: 30 0RF Eliquis 5 mg tablet 5 mg PO BID Qty: 30 0RF metoprolol succinate 25 mg tablet extended release 24 hr 12.5 mg PO DAILY Qty: 30 0RF Referrals: Miscellaneous,Doctor, MD [Primary Care Provider] - Stand Alone Forms: Patient Portal/API
--- NOTE | 2023-09-11 04:42 | DI.CT.S_ITS ---
PROCEDURE: CT ABDOMEN PELVIS WO CON INDICATIONS: Abdominal pain. TECHNIQUE: Axial sections were acquired from the lung bases to the pubic symphysis. Coronal and sagittal reformats were performed. For radiation dose reduction, the following was used: automated exposure control, adjustment of mA and/or kV according to patient size. COMPARISON: [facility], CR, XR CHEST 2 VIEWS, 03/08/2018, 12:31. [facility], CR, XR CHEST 1V, 09/01/2023, 16:29. CT, IVP (ABD & PEL WWO CONTRAST), 01/10/2017, 13:15. [facility], CR, XR CHEST 2V, 09/11/2023, 1:25. FINDINGS: Image quality: Diagnostic. Lower Chest:. Heart size is mildly increased. Mild interstitial prominence at lung bases. Trace right pleural effusion. There is a small hiatal hernia. URINARY: Right Kidney: There is mild right hydronephrosis. No urinary stones are identified. Right Ureter: No hydroureter. Left Kidney: No stones or hydronephrosis. There is a 1.4 cm cyst in the left kidney. Left Ureter: No hydroureter. Bladder: Normal wall thickness. No stones. A 2 mm calcific density posterior to the right urinary bladder is most likely a fluid. ABDOMEN: Liver: No contour-deforming solid mass. Gallbladder: Surgically absent. Biliary ducts: No biliary dilation. Pancreas: No ductal dilation. Spleen: Size is within normal limits. Adrenal Glands: No adrenal nodules. Stomach and Bowel: Normal bowel caliber, without significant wall thickening. Diverticulosis without diverticulitis. Normal appendix. Peritoneum: No abnormal intraperitoneal fluid. No free air. Ventral Wall: No hernia. Abdominal Nodes: No enlarged retroperitoneal or mesenteric lymph nodes. Vessels: Aorta and inferior vena cava are normal in size. Mild atherosclerotic calcification. 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 PELVIS: Pelvic Organs: Uterus is absent. Ovaries are not well seen. No pathological free-fluid in pelvis.. Pelvic Nodes: Unremarkable. Miscellaneous: No inguinal hernias are seen. Bones: Moderate spondylitic changes in lumbar spine. Grade 1 anterolisthesis of L3 on L4 and L4 on L5. Note is made of left hip total arthroplasty. IMPRESSION: 1. There is mild right hydronephrosis. No obstructive stones are identified. 2. Small hiatal hernia. 3. Diverticulosis without diverticulitis. 4. Mild cardiomegaly. Trace right pleural effusion. Mild interstitial prominence at lung bases. Impression mild CHF. 5. Mild celiac artery aneurysm. No significant discrepancy with the security shift manager radiology preliminary report. Dictated by: Ezio Bell M.D. on 09/11/2023 at 7:54 Approved by: Ezio Bell M.D. on 09/11/2023 at 8:08
== END 2023-09-11 06:58 | disposition home or self-care (01) ==
PROVIDERS: Emergency Provider Emergency Medicine
DX: J90 Pleural effusion, not elsewhere classified (principal); N13.30 Unspecified hydronephrosis; K44.9 Diaphragmatic hernia without obstruction or gangrene; R07.9 Chest pain, unspecified; R10.13 Epigastric pain; Z79.01 Long term (current) use of anticoagulants
CPT/HCPCS: 36415; 71046; 74176; 80053; 82550; 83690; 83735; 84484; 85025; 85610; 85730; 93005; 93010; 99281; 99284

== ENCOUNTER 2023-10-24 06:11 | Day surgery (SDC) | payer MEDICARE, OTHER, SELFPAY ==
[2019-10-16 11:12] VITALS: BMI 38.1
[2023-10-18 10:22] VITALS: BMI 33.9
[2023-10-24] VITALS (11 sets, daily range): BP systolic 102–149; BP diastolic 45–78; PULSE 54–67; RESP 12–18; TEMP 36.2–36.7; O2SAT 93–98; BMI 34.9
--- NOTE | 2023-10-24 | DI.RAD.S_ITS ---
PROCEDURE: XR PELVIS 1-2V INDICATIONS: INTEROP TECHNIQUE: Intra-operative view of the pelvis and hip acquired. COMPARISON: [facility], KATHERINE, XR HIP W PEL IF DONE RT 2V, 10/24/2023, 10:02. [facility], KATHERINE, XR PELVIS 1-2V, 10/16/2019, 9:00. FINDINGS: Bones: Intraoperative devices prior to placement of arthroplasty prostheses are in expected positions. No fractures or suspicious bony lesions. New right hip arthroplasty is present. Previous left hip arthroplasty is noted. Soft tissues: Overlying surgical retractors are present, along with other intraoperative changes. IMPRESSION: Intraoperative appearance of new right hip arthroplasty. Dictated by: Janeen Lux M.D. on 10/24/2023 at 15:05 Approved by: Janeen Lux M.D. on 10/24/2023 at 15:06
--- NOTE | 2023-10-24 06:00 | DI.RAD.S_ITS ---
PROCEDURE: XR HIP W PEL IF DONE RT 2V INDICATIONS: ALEXANDER TECHNIQUE: 2 view(s) of the hip acquired. COMPARISON: [facility], KATHERINE, XR HIP W PEL IF DONE LT 2V, 10/16/2019, 10:10. FINDINGS: Bones: Patient is status post right hip arthroplasty, with hardware components in expected positions. The hip joint appears congruent. The visualized bony structures appear intact. Well-aligned, intact left total hip arthroplasty without hardware complication. Soft tissues: Overlying postoperative changes are noted. No suspicious soft tissue densities. IMPRESSION: Expected post-operative appearance of a hip arthroplasty. Dictated by: Taran Harp M.D. on 10/24/2023 at 10:48 Approved by: Taran Harp M.D. on 10/24/2023 at 10:59
[2023-10-24] MEDS: LACTATED RINGERS 1,000 ML 42 ML IV (06:59)
[2023-10-24] MEDS: CELECOXIB 200 MG CAPSULE PO (06:59)
[2023-10-24] MEDS: VANCOMYCIN 1,000 MG/200 ML PIGGYBACK 200 MG IV (07:00)
[2023-10-24 07:01] LABS: HEMOLYSIS 19 (0-50); Potassium 4.4 mmol/L (3.4-5.1)
--- NOTE | 2023-10-24 07:45 | P.OP_ITS ---
Operative Date/Time/Diagnoses Date of procedure: 10/24/23 Time of procedure: 08:00 Pre-op diagnosis: SEVERE RIGHT HIP OA Post-op diagnosis: same Procedure & Clinicians Procedure: Right total hip arthroplasty posterior approach Same procedure as scheduled: Yes Indications: The patient has had progressively worsening right hip pain with radiographic changes consistent with arthritis. Non-operative management has failed and the patient has requested total hip replacement. The risks, benefits and alternatives to surgery were discussed with the patient prior to proceeding. Risks discussed included, but were not limited to, failure to relieve pain, leg length discrepancy, dislocation, stiffness, infection, nerve damage, deep venous thrombosis, pulmonary embolism, stroke, coma, heart attack, permanent paralysis and , as well as the potential need for eventual revision of the prosthetic. Surgeon: Marcy Cohn Supervisor Line Department: [facility] Anesthesia Type: General and Spinal Operative Notes Findings: Severe right hip OA, adequate stability Closure Type: primary Specimen(s): none sent Prosthetic devices, grafts, tissues, transplants, or devices: Cohn and nephew 54 R3, neutral poly liner,one 6.5 mm screw, anthology standard offset size 7, 36 by +0 Oxinium head Estimated Blood Loss (mL): 250 Blood products transfused: none Procedure in detail: The patient was seen in the pre-operative area, where the patient identified the right hip as the operative site and this was marked with my initials. The patient received pre-operative antibiotics and was taken to the operating room and placed on the operative table in the left lateral decubitus position after satisfactory anesthesia. A multimedia artist out was performed. The right leg was prepared from the ankle to the iliac crest with ChloroPrep in the usual fashion and draped through sterile drapes. A PA was used during the procedure and was essential for intraoperative retraction and safe implantation of the components. The hip was approached through an approximately 20 cm incision centered over the greater trochanter and curving gently posteriorly as it went proximally. This was carried sharply to the fascia binh, which was divided and retracted with a self retaining retractor. The trochanteric bursa was excised with care being taken to avoid the sciatic nerve, which was identified and protected throughout the case. The short external rotators were incised and the capsulomuscular flap was raised and tagged for later repair. The hip was dislocated, and a femoral neck osteotomy performed approximately 15 mm above the lesser trochanter. Retractors were placed around the femur. The canal was opened with a box cutting osteotome, followed by a T handled reamer and a lateralizing reamer. The chili pepper broach was then used, followed by sequential broaching until there was good stability of the broach in the femur. Retractors were placed to expose the acetabulum. The labrum and central soft tissues were removed. Reaming was performed initially going up in 2 mm increments, then 1 mm increments until good bite was obtained with an odd sized reamer. The cup 1 mm larger than the last reamer was then inserted using the appropriate anteversion guides. It was further stabilized with a single screw. A trial neutral liner was placed. The broach was placed in the canal. A trial head and neck were then placed and the hip relocated and checked for leg length and stability. An intraoperative film confirmed the component position and no evidence of fracture. The patient was stable in the position of sleep, of squatting, and could be put through a range of motion with 45 degrees internal rotation without dislocation. At 90 degrees flexion, internal rotation to 70? was possible before dislocation. This was felt to be satisfactory and the appropriate components were opened, and the trials were removed. The acetabular liner was impacted into position. The final stem was then impacted into the prepared femoral canal. A brief saline soak was performed while trialing with head options. The hip was meticulously irrigated with normal saline. Finally the femoral head was impacted onto the stem. The acetabulum was cleared of all material and the hip relocated one final time. The capsulomuscular flap was then repaired to the greater trochanter though an awl hole using the tag sutures. The short external rotators were repaired with a nonabsorbable suture. The fascia binh was closed with Vicryl. The subcutaneous layer was closed with barbed sutures and skin joe. A lavinia dressing was applied and the patient was taken to recovery having tolerated the procedure well. Complications: none Post-operative Condition: stable Disposition: Acute Care Plan for aftercare: The patient will be maintained on a standard total hip replacement protocol with weight bearing as tolerated and posterior hip precautions. The patient will receive Eliquis and sequential compression devices for DVT prophylaxis. The patient will be discharged home when safe for the home environment.
--- NOTE | 2023-10-24 07:45 | PM.PREOP ---
Pre-operative Note Interval Note History & Physical reviewed/Exam performed by Physician: Yes Changes to H&P: No
[2023-10-24] MEDS: CEFAZOLIN 2 GM/100 ML PREMIX 100 ML IV ×3 (08:09→23:50)
[2023-10-24] MEDS: BUPIVACAINE 0.25% (PF) 60 ML, EPINEPHrine 0.3 MG INJ (08:26)
[2023-10-24] MEDS: TRANEXAMIC ACID 1,000 MG VIAL 1000 MG INJ ×2 (08:27→09:30)
[2023-10-24] MEDS: SODIUM CHLORIDE IRRIG SOLUTION 250 ML, EPINEPHrine 1 MG IRR (08:28)
[2023-10-24] MEDS: BUPIVACAINE LIPOSOME 266 MG/20 ML VIAL INJ (09:30)
[2023-10-24] MEDS: OXYCODONE IR 5 MG TABLET PO ×2 (10:25→13:59)
[2023-10-24] MEDS: LACTATED RINGERS 1,000 ML 100 ML IV (11:13)
--- NOTE | 2023-10-24 12:18 | PC.NURSE ---
Received from OR. VSS. No nausea. O2 sat 93-94%. Some pain is present on the rt hip area but declined pain medication. Pt has not voided since 0500 and not bladder scanned in PACU. Bladder scan shows 669ml, was able to void 350 on bedpan. Unable to move feet/legs still due to spinal. Will cont to monitor ability to void.
--- NOTE | 2023-10-24 13:45 | PT.IIE ---
Current Diagnoses Unilateral primary osteoarthritis, right hip (10/24/23) Surgery Performed Operation Date: 10/24/23 07:45 Actual Procedures p Total Hip Arthroplasty(Right) - Marcy Cohn MD Surgical History (Last Reviewed 10/24/23 @ 07:08 by Yesika Holden, LAVINIA) H/O: hysterectomy History of arthroplasty of left knee History of arthroplasty of right knee History of cholecystectomy 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) Hx of bilateral cataract extraction Hx of dilation and curettage Medical History (Last Reviewed 10/24/23 @ 07:08 by Yesika Holden, LAVINIA) Acid reflux Afib (09/08/23) Degenerative joint disease (DJD) of hip Easy bruisability Facet arthropathy, lumbosacral First degree AV block Gait instability HLD (hyperlipidemia) HTN (hypertension) Lumbar stenosis Postural hypotension Shortness of breath Syncopal episodes Physical Therapy Inpatient Evaluation/Re-Eval M1 PT/OT-IP Prior Functional Status Start: 10/24/23 15:43 Freq: NEEDED Status: Active Protocol: Document 10/24/23 13:45 AB (Rec: 10/24/23 16:01 AB [id number]) Medical Review Prior Functional Status Medical History Reviewed Yes Communication able to make needs known Mobility and Gait pt stated that she was modified independent with all mobilities and ambulation using a SPC; only started using SPC more consistently for that last 3 months due to hip pain Activities of Daily Living and IADL's per OT note: Pt used LB dressing equipment to assist with her needs. Social History Household Members family,other Living Arrangements House Number of Floors (Floors) 3 or More Floors Number of Stairs To Enter/Railing? pt lives on a triplex house: 7 steps L rail ascending to enter the house has 3 steps B rails + 4Steps R rail ascending to get to bedroom level Home Environment High Toilet,Walk in Shower Home Equipment Front Wheel Walker,Four Wheel Walker,Straight Cane,Raised Toilet Seat w/Armrests,Hand Held Shower,Long Handled Sponge,Long Handled Shoe Horn, Slag Production Worker,Sock Aid Additional Social History Comment Pt lives with her brother who himself uses a cane to walk with and not able to phyically assist her. M2 PT-IP Current Condition Start: 10/24/23 15:43 Freq: NEEDED Status: Active Protocol: Document 10/24/23 13:45 AB (Rec: 10/24/23 16:01 AB [id number]) Physical Therapy Current Condition Current Condition Evaluation Date 10/24/23 Treatment Diagnosis s/p R ALEXANDER posterior; difficulty in walking Onset Date 10/24/23 M3 PT-IP Subjective Start: 10/24/23 15:43 Freq: NEEDED Status: Active Protocol: Document 10/24/23 13:45 AB (Rec: 10/24/23 16:01 AB [id number]) Subjective Physical Therapy Visit Type Type Initial Evaluation Visit Start Time 13:45 Visit Stop Time 14:55 Number of WILDLIFE MANAGER Visits 0 Physical Therapy Visit Comments Patient Comments pt is agreeable to do PT Therapy Pain Assessment Pain When Pain Assessed At Rest Pain Present Pain Present Pain Reported Location Right Hip Intensity 6 Scale Used Numeric (0 - 10) Pain Management Techniques Apply Cold,Distraction, Modification of Treatment,Re- positioning,Timing of Activity with Medications M4 PT-IP Mobility and Gait Start: 10/24/23 15:43 Freq: NEEDED Status: Active Protocol: Document 10/24/23 13:45 AB (Rec: 10/24/23 16:01 AB [id number]) PT-Bed Mobility Assessment Supine to Sit Supine to Sit Minimal Assistance,1 Person Assistance PT-Transfer Assessment Sit to and From Stand Sit to and from Stand Moderate Assistance,Maximum Assistance,1 Person Assistance ,Use of Upper Extremities Equipment Transfer Assistive Device Gait Belt,Front Wheeled Walker Orthotic/Prosthetic Devices or Brace: No Transfers Transfer Destination Chair,Bedside Commode Transfer Technique Stand Pivot Transfer Ability Level of Assist Moderate Assistance,1 Person Assistance,Use of Upper Extremities Comments Mobility Comments pt supine in bed and agreeable to do PT. obtained PLOF and home set up from pt. BP in supine: 133/60. post-op folder provided and reviewed with pt. educated pt regarding R hip posterior precautions. pt requiring cues to recall. pt found to be wet in bed. educated pt regarding safety and which side is easier for pt to get/out from but pt wanting to get out the L side of the bed since this is the side she gets in/out at home. attempted to get out on L side of the bed but pt unable . pt agreed to get out the R side of the bed and pt completed with min A and max cues for techniques. pt was able to sit on EOB SBA. bedside commode placed next to pt. pt completed sit to stand mod A to max A and max cues. pt tends to internally rotate RLE during sit<>stand and needs assist to stabilize. pt completed step transfer to bedside commode using FWW mod A and max cues. pt required assist with hygiene care and brief managment. completed sit to stand from bedside commode mod to max A and max cues. pt ambulated in room ~ 15 ft using FWW mod A and cues. pt agreed to sit up on the chair. positioned pt on the chair. call light and table placed within reach. informed pt regarding current level of assistance and limited assistance she has at home. pt agreed to go to SNF if needed. Gait Assessment Gait Gait Assistance Required: Moderate Assistance Distance (Feet) 15 Able to Maintain Weight Bearing Status Yes During Gait Assistive Devices Assistive Device Gait Belt,Front Wheeled Walker Orthotic/Prosthetic Devices or Brace: No Gait Deviations General Gait Pattern Decreased Stride Length, Decreased Feet Clearance,Step- to Gait Factors Limiting Gait Function Factors Limiting Gait Function Decreased Activity Tolerance, Decreased Strength,Difficulty Following Directions,Limited Range of Motion,Poor Safety Awareness PT-Balance Assessment Sitting Balance and Reactions Static Sitting Balance Ability Good Dynamic Sitting Balance Ability Good Standing Balance and Reactions Static Standing Balance Ability Poor Dynamic Standing Balance Ability Poor Device Used FWW M5 PT-IP Objective Assessments Start: 10/24/23 15:43 Freq: NEEDED Status: Active Protocol: Document 10/24/23 13:45 AB (Rec: 10/24/23 16:01 [id number]) Orientation Orientation/Cognition Level of Alertness Alert Orientation Name,Place,Situation Language Function Ability No Deficits Noted Safety Awareness Decreased Safety Awareness Memory Description No Deficits Noted Gross Range of Motion Lower Extremity ROM Assessment Within Functional Limits Strength Lower Extremity Strength Assessment Right Impaired Hip 3+/5 Knee 4-/5 M6 PT-IP Treatment Start: 10/24/23 15:43 Freq: NEEDED Status: Active Protocol: Document 10/24/23 13:45 AB (Rec: 10/24/23 16:01 [id number]) Physical Therapy Treatment Education Education Provided Precautions,Weight Bearing Status,Post-Op Packet,Safety M7 PT-IP Assessment and Plan Start: 10/24/23 15:43 Freq: NEEDED Status: Active Protocol: Document 10/24/23 13:45 AB (Rec: 10/24/23 16:01 AB [id number]) PT Summary Assessment and Plan Potential Rehabilitation Potential Fair Status of Condition at Evaluation Evolving Summary Impairments Pain,ROM,Strength,Balance, Coordination,Sensation,Tone, Cognition,Bed Mobility, Transfers,Gait,Activity Tolerance Assessment Summary pt is an 82 y/o F s/p R ALEXANDER posterior approach POD 0. pt has R hip posterior precautions and is WBAT. pt requiring mod to max A for transfers and ambulation using FWW and max cues for hip precautions and safety. pt will require 24/7 assist at this time and will need SNF rehab to improve overall strength and mobility independence. will continue to assess. Goals Bed Mobility Goal Standby Assistance Transfer Goal Standby Assistance,Front Wheeled Walker Gait Goal Standby Assistance,Front Wheel Walker Gait Distance 100 Other Goals improve bed mobility, transfers, ambulation using FWW ~ 250 ft SBA up/down 7 steps L rail ascending + SPC, 4 steps R rail ascending + SPC SBA Days to Meet Goals 5 Frequency of Treatment Frequency Of Treatment Twice a Day Treatment Plan Physical Therapy Treatment Plan Bed Mobility Training,Transfer Training,Gait Training, Therapeutic Exercise,Balance Retraining,Post Op Education, Discharge Planning,Hot or Cold Pack,Neuromuscular Re-ed, Coordination Retraining,Manual Therapy Precautions Posterior Hip Precautions No Hip Flexion > 90 degrees,No Hip Internal Rotation,No Hip Adduction Weight Bearing Status Weight Bearing Status Weight Bear as Tolerated Allowed Weight Bearing Amount (enter % RLE WBAT or #) (%) Recommendations To Nursing Amount of Assist Needed 1 Person Assist Discharge Recommendations PT Discharge Recommendations SNF Rehab Transportation Needs at Discharge Wheelchair/Cabulance
[2023-10-24] MEDS: IBUPROFEN 400 MG TABLET PO ×2 (13:58→21:13)
[2023-10-24] MEDS: ACETAMINOPHEN 325 MG TABLET 650 MG PO ×2 (13:59→21:13)
--- NOTE | 2023-10-24 15:00 | OT.IP.EVAL ---
Current Diagnoses Unilateral primary osteoarthritis, right hip (10/24/23) Surgery Performed Operation Date: 10/24/23 07:45 Actual Procedures p Total Hip Arthroplasty(Right) - Marcy Cohn MD Past Medical History (Last Reviewed 10/24/23 @ 07:08 by Yesika Holden, RN) Acid reflux Afib (09/08/23) Degenerative joint disease (DJD) of hip Easy bruisability Facet arthropathy, lumbosacral First degree AV block Gait instability HLD (hyperlipidemia) HTN (hypertension) Lumbar stenosis Postural hypotension Shortness of breath Syncopal episodes Surgical History (Last Reviewed 10/24/23 @ 07:08 by Yesika Holden, LAVINIA) H/O: hysterectomy History of arthroplasty of left knee History of arthroplasty of right knee History of cholecystectomy 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) Hx of bilateral cataract extraction Hx of dilation and curettage Occupational Therapy Inpatient Evaluation/Re-Eval M1 PT/OT-IP Prior Functional Status Start: 10/24/23 15:13 Freq: NEEDED Status: Active Protocol: Document 10/24/23 15:13 [facility] (Rec: 10/24/23 15:29 [facility] [id number]) Medical Review Prior Functional Status Communication Independent Mobility and Gait Pt states used her FWW inside,and 4ww outdoors on uneven surfaces. Activities of Daily Living and IADL's Pt used LB dressing equipment to assist with her needs. Social History Household Members family,other Living Arrangements House Number of Floors (Floors) 3 or More Floors Number of Stairs To Enter/Railing? Pt has no steps from the garage. 7 steps with left rail to get into the kitchen and then another 7 steps with right rail to get to the bathroom level. Home Environment Standard Height Toilet,Walk in Shower Home Equipment Front Wheel Walker,Four Wheel Walker,Straight Cane,Raised Toilet Seat w/Armrests,Hand Held Shower,Long Handled Sponge,Long Handled Shoe Horn, Appellate Law Clerk,Sock Aid Additional Social History Comment Pt lives with her brother who himself uses a cane to walk with and not able to physically assist her. M2 OT-IP Current Condition Start: 10/24/23 15:13 Freq: Status: Active Protocol: Document 10/24/23 15:13 [facility] (Rec: 10/24/23 15:29 [facility] [id number]) Occupational Therapy Current Condition Current Condition Evaluation Date 10/24/23 Treatment Diagnosis S/P R ALEXANDER Posterior approach Diagnosis Onset Date 10/24/23 Post Operative Precautions Posterior Hip Precautions No Hip Flexion > 90 degrees,No Hip Internal Rotation,No Hip Adduction M3 OT- IP Subjective and Pain Start: 10/24/23 15:13 Freq: Status: Active Protocol: Document 10/24/23 15:13 [facility] (Rec: 10/24/23 15:29 [facility] [id number]) OT- Subjective Occupational Therapy Visit Type Type Initial Evaluation Visit Start Time 14:40 Visit Stop Time 15:15 Occupational Therapy Visit Comments Patient Comments Pt just finishing seeing PT and agreed to get up with OT for eval. Patient/Caregiver Goals To get better. OT Pain Assessment Pain When Pain Assessed During Mobility Pain Present Pain Present Pain Reported Location Left Hip Intensity 7 Scale Used Numeric (0 - 10) M4 OT- IP ADL's Start: 10/24/23 15:13 Freq: Status: Active Protocol: Document 10/24/23 15:13 [facility] (Rec: 10/24/23 15:29 [facility] [id number]) OT [id number] Comments OT Self-Feeding Comments Not at meal time. OT ADL-Grooming Comments OT Grooming Comments Not performed. OT ADL-Oral Care Comments Oral Care Comments Not performed. OT ADL-Dressing General Eval Lower Body Dressing Ability Maximum Assistance Areas Needing Assistance Socks Comments OT Dressing Comments Pt has LB dressing equipment and to practice tomorrow. OT ADL-Toileting Comments OT Toileting Comments Pt just completed earlier with nursing staff. Pt states was not able to tell that she urinated. Pt states uses pads and know to stand to wipe in order to best follow her hip precautions. OT ADL-Bathing Comments OT Bathing Comments Pt would benefit from a shower chair if able to fit inside her shower. M5 OT- IP IADL's Start: 10/24/23 15:13 Freq: Status: Active Protocol: Document 10/24/23 15:13 [facility] (Rec: 10/24/23 15:29 [facility] [id number]) OT-Instrumental Activities of Daily Living Deficits IADL Deficits Identified Deficits Home Safety Awareness Awareness of Need for Assistance at Home Good Awareness Home Safety Comments Pt aware at this time will need more assist then her elderly brother who uses a cane is able to provide for her at this time. Meal Preparation Meal Preparation Caregiver Provides Assist Box Finisher Box Finisher Caregiver Provides Assist M6 OT- IP Functional Cognition Start: 10/24/23 15:13 Freq: Status: Active Protocol: Document 10/24/23 15:13 [facility] (Rec: 10/24/23 15:29 [facility] [id number]) Cognitive Factors Limiting Selfcare Function Cognitive Ability Level of Alertness Alert Patient Orientation Name,Age,Birthday,Month,Date, Year,Day of Week,Place, Situation Attention Span Ability Capable of Focused Attention, Capable of Sustained Attention Ability to Follow Commands Able to Follow One Step Commands Cognitive Comments Cognitive Assessment Comments Pt able to recall her precautions and incorporate during mobility needs today. OT- Vision and Hearing OT- Hearing Assessment OT- Hearing Assessment WFL OT- Vision Assessment Visual Acuity Glasses For Reading Visual Attentiveness WFL Occular Pursuits WFL M7 OT- IP Mobility and Balance Start: 10/24/23 15:13 Freq: Status: Active Protocol: Document 10/24/23 15:13 [facility] (Rec: 10/24/23 15:29 [facility] [id number]) OT-Transfer Assessment Sit to and From Stand Sit to and from Stand Moderate Assistance Comments Mobility Comments Pt not wanting to get back to bed at this time and just getting up. Pt able to come to stand with MODA X1 the FWW. Pt having good recall to slide her RLE forwards prior to sitting and standing. OT- Balance Assessment Sitting Balance and Reactions Static Sitting Balance Ability Good Dynamic Sitting Balance Ability Good Standing Balance and Reactions Static Standing Balance Ability Fair Dynamic Standing Balance Ability Poor M8 OT- IP Objective Assessments Start: 10/24/23 15:13 Freq: Status: Active Protocol: Document 10/24/23 15:13 [facility] (Rec: 10/24/23 15:29 [facility] [id number]) OT Gross Range of Motion Upper Extremity Range of Motion Assessment Within Functional Limits OT Strength Upper Extremity Strength Assessment Within Functional Limits M9 OT- IP Assessment and Plan Start: 10/24/23 15:13 Freq: Status: Active Protocol: Document 10/24/23 15:13 [facility] (Rec: 10/24/23 15:29 [facility] [id number]) OT Summary Assessment and Plan Potential Rehabilitation Potential Excellent Analytic Complexity at Evaluation Low Summary OT Impairments Pain,Strength,Functional Mobility,Grooming,Dressing, Toileting,Bathing,Toilet Transfers,Shower Transfers, Activity Tolerance Progress Towards Goals Progressing Toward Goals Assessment Summary Pt low complexity and main barriers are steps, pain, and needing MODA to come to stand at this time to the W. Pt will need physical assist with some ADL and mobility needs which her brother that lives with her is unable to provide as he uses a cane to walk with . Pt will benefit from skilled rehab stay and continue to practice her posterior precautions for ADL and mobility needs. Pt is very cooperative and motivated to get better. Goals Grooming Goal Independent Dressing Goal Independent,Appellate Law Clerk,Sock Aid Toileting Goal Independent Bathing Goal Standby Assistance Toilet Transfer Goal Independent Shower Transfer Goal Independent Days to Meet Goals 15 Frequency of Treatment Frequency Of Treatment Once a Day Treatment Plan OT Treatment Plan ADL Training,Functional Mobility,Patient/Family Education,Discharge Planning Other Treatment Recommendations and Next practice LB dressing equipment Treatment Focus Discharge Recommendations OT Discharge Recommendations SNF Rehab Transportation Needs at Discharge Wheelchair/Cabulance
[2023-10-24 16:13] LABS: HEMOLYSIS 42 (0-50); Potassium 4.6 mmol/L (3.4-5.1)
[2023-10-24] MEDS: DOCUSATE 100 MG CAPSULE PO (21:13)
[2023-10-24] MEDS: ONDANSETRON 4 MG/2 ML INJ IV (22:47)
[2023-10-25] VITALS: BP 133/63; PULSE 66; RESP 18; TEMP 36.2; O2SAT 95
[2023-10-25 05:00] VITALS: BP 129/66; PULSE 60; RESP 17; TEMP 36.4; O2SAT 96
[2023-10-25 06:49] LABS: Hematocrit 37.2 % (36-46); Hemoglobin 12.6 g/dL (12.0-16.0)
--- NOTE | 2023-10-25 06:54 | P.PN_ITS ---
Subjective Subjective Date Patient Seen: 10/25/23 Time Patient Seen: 06:55 Interval history: Patient states her right hip pain is [id number]. Denies any fever or chills. No nausea or vomiting. Patient has her brother home to help her however he is limited in his ability and actually uses a cane for assistance when ambulating. Exam Vital Signs (past 8 hours): - 10/25/23 00:00 10/25/23 05:00 Temperature 97.2 F L 97.6 F Pulse Rate 66 60 Respiratory Rate 18 17 Blood Pressure 133/63 129/66 Pulse Oximetry 95 96 Oxygen Flow Rate 0 0 Oxygen Delivery Method Room Air Oxygen Flow Rate 0 Narrative Exam Narrative: 82-year-old female resting comfortably in bed in no apparent distress. Jose Maria dressing is on and functioning. Jose Maria dressing is clean, dry and intact. Motor functions intact bilateral lower extremities. Sensation is grossly intact to light touch bilateral lower extremities. Const General: cooperative and comfortable Nutritional Appearance: average body habitus Orientation: alert Resp Effort & Inspection: normal respiratory effort and able to speak in complete sentences Objective Labs 10/25/23 05:55 10/24/23 15:53 Labs: Laboratory Results - last 24 hr 10/24/23 10/24/23 06:49 15:53 Potassium 4.4 4.6 PFSH Medical History Afib (09/08/23) Easy bruisability Acid reflux First degree AV block Shortness of breath HLD (hyperlipidemia) HTN (hypertension) Postural hypotension Syncopal episodes Gait instability Lumbar stenosis Facet arthropathy, lumbosacral Degenerative joint disease (DJD) of hip Surgical History 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) Hx of dilation and curettage Hx of bilateral cataract extraction History of arthroplasty of left knee History of arthroplasty of right knee History of cholecystectomy H/O: hysterectomy Family History Father Enlarged heart Mother Diabetes mellitus Hypertension Brother Heart attack Grandfather Heart attack Social History marital status: number of children: 4 household members: family and other Smoking Status: Never smoker alcohol intake: never Assessment & Plan Post-op Postoperative Procedures: Procedures Operation Date: 10/24/23 07:45 Actual Procedure Side Surgeon p Total Hip Arthroplasty Right Marcy Cohn MD Postoperative day: 1 Postoperative status: doing well Postoperative plan narrative: Patient will be maintained on standard total hip protocol with weight-bearing as tolerated posterior hip precautions Mobilize with physical therapy Eliquis for DVT prophylaxis Multimodal pain management Disposition, currently physical therapy is recommending group home facility placement.
[2023-10-25 08:00] VITALS: BP 138/58; PULSE 63; RESP 18; TEMP 36.1; O2SAT 98
[2023-10-25] MEDS: ACETAMINOPHEN 325 MG TABLET 650 MG PO ×2 (08:26→20:52)
[2023-10-25] MEDS: POTASSIUM CHLORIDE 10 MEQ TAB PO (08:27)
[2023-10-25] MEDS: IBUPROFEN 400 MG TABLET PO (08:27)
[2023-10-25] MEDS: FUROSEMIDE 20 MG TABLET PO (08:27)
[2023-10-25] MEDS: DOCUSATE 100 MG CAPSULE PO ×2 (08:28→20:52)
[2023-10-25] MEDS: OXYCODONE IR 5 MG TABLET PO ×2 (08:28→14:05)
[2023-10-25] MEDS: METOPROLOL ER 25 MG TABLET 12.5 MG PO (08:28)
--- NOTE | 2023-10-25 09:34 | OT.IP.TRT ---
Current Diagnoses Unilateral primary osteoarthritis, right hip (10/24/23) Surgery Performed Operation Date: 10/24/23 07:45 Actual Procedures p Total Hip Arthroplasty(Right) - Marcy Cohn MD Occupational Therapy Treatment Note M2 OT-IP Current Condition Start: 10/24/23 15:13 Freq: Status: Active Protocol: Document 10/24/23 15:13 [facility] (Rec: 10/24/23 15:29 [facility] [id number]) Occupational Therapy Current Condition Current Condition Evaluation Date 10/24/23 Treatment Diagnosis S/P R ALEXANDER Posterior approach Diagnosis Onset Date 10/24/23 Post Operative Precautions Posterior Hip Precautions No Hip Flexion > 90 degrees,No Hip Internal Rotation,No Hip Adduction M3 OT- IP Subjective and Pain Start: 10/24/23 15:13 Freq: Status: Active Protocol: Document 10/25/23 10:15 [facility] (Rec: 10/25/23 10:24 [facility] [id number]) OT- Subjective Occupational Therapy Visit Type Type Treatment Note Visit Start Time 09:05 Visit Stop Time 09:34 Occupational Therapy Visit Comments Patient Comments Pt agreed to get up to do grooming and oral care needs. Patient/Caregiver Goals To go home. OT Pain Assessment Pain When Pain Assessed At Rest Pain Present Pain Present Pain Reported Location Right Hip Intensity 6 Scale Used Numeric (0 - 10) M4 OT- IP ADL's Start: 10/24/23 15:13 Freq: Status: Active Protocol: Document 10/25/23 10:15 [facility] (Rec: 10/25/23 10:24 [facility] [id number]) OT [id number] General Evaluation Self-Feeding Ability Independent OT ADL-Grooming General Evaluation Grooming Ability Standby Assistance Areas Needing Assistance Retrieving/Set-up of Grooming Items Comments OT Grooming Comments Pt able to do while standing with the FWW. OT ADL-Oral Care General Eval Oral Care Ability Independent OT ADL-Dressing General Eval Lower Body Dressing Ability Standby Assistance Areas Needing Assistance Socks Assistive Devices Dressing Assistive Devices Rfid Analyst,Sock Aid Comments OT Dressing Comments Pt able to practice use of mineral technologist and sock aid with good demonstration and follow through. Pt states her foam piece on her sock aid no longer works and able to give pt a piece of velcro loop to replace the foam on her sock aid. Pt states uses her long handled scrubber at home like a leg generation technician to assist to get her leg into and out of the bed. OT ADL-Toileting Comments OT Toileting Comments Pt able to comfortable reach for hygiene needs while standing during simulation. OT ADL-Bathing Comments OT Bathing Comments Pt insists to shower at home. Pt able to sponge off her armpits at the sink while standing. M5 OT- IP IADL's Start: 10/24/23 15:13 Freq: Status: Active Protocol: Document 10/24/23 15:13 [facility] (Rec: 10/24/23 15:29 [facility] [id number]) OT-Instrumental Activities of Daily Living Deficits IADL Deficits Identified Deficits Home Safety Awareness Awareness of Need for Assistance at Home Good Awareness Home Safety Comments Pt aware at this time will need more assist then he elderly brother who uses a cane is able to provide for her at this time. Meal Preparation Meal Preparation Caregiver Provides Assist Cutter Woodwind Reeds Cutter Woodwind Reeds Caregiver Provides Assist M6 OT- IP Functional Cognition Start: 10/24/23 15:13 Freq: Status: Active Protocol: Document 10/25/23 10:15 [facility] (Rec: 10/25/23 10:24 [facility] [id number]) Cognitive Factors Limiting Selfcare Function Cognitive Comments Cognitive Assessment Comments Pt doing well. Pt just needing safety cue to keep the FWW in front of her while doing grooming needs at the sink. M7 OT- IP Mobility and Balance Start: 10/24/23 15:13 Freq: Status: Active Protocol: Document 10/25/23 10:15 [facility] (Rec: 10/25/23 10:24 [facility] [id number]) OT-Transfer Assessment Sit to and From Stand Sit to and from Stand Standby Assistance Transfers Transfer Ability Standby Assistance Comments Mobility Comments Much improved and pt able to come to stand with SBA and walk with the FWW with SBA. OT- Balance Assessment Sitting Balance and Reactions Static Sitting Balance Ability Normal Dynamic Sitting Balance Ability Good Standing Balance and Reactions Static Standing Balance Ability Good Dynamic Standing Balance Ability Fair M8 OT- IP Objective Assessments Start: 10/24/23 15:13 Freq: Status: Active Protocol: Document 10/24/23 15:13 [facility] (Rec: 10/24/23 15:29 [facility] [id number]) OT Gross Range of Motion Upper Extremity Range of Motion Assessment Within Functional Limits OT Strength Upper Extremity Strength Assessment Within Functional Limits M9 OT- IP Assessment and Plan Start: 10/24/23 15:13 Freq: Status: Active Protocol: Document 10/25/23 10:15 [facility] (Rec: 10/25/23 10:24 [facility] [id number]) OT Summary Assessment and Plan Potential Rehabilitation Potential Excellent Analytic Complexity at Evaluation Low Summary OT Impairments Pain,Strength,Functional Mobility,Grooming,Dressing, Toileting,Bathing,Toilet Transfers,Shower Transfers, Activity Tolerance Progress Towards Goals Progressing Toward Goals Assessment Summary Pt doing much better today and more steady on her feet. Pt now looking to go home with assist when medically ready and if able to do the steps with PT. Goals Toileting Goal Independent Bathing Goal Independent Toilet Transfer Goal Independent Shower Transfer Goal Independent Days to Meet Goals 5 Frequency of Treatment Frequency Of Treatment Once a Day Treatment Plan OT Treatment Plan ADL Training,Functional Mobility,Patient/Family Education,Discharge Planning Discharge Recommendations OT Discharge Recommendations Home with 21/11 Assist Available,Outpatient PT Transportation Needs at Discharge Private Vehicle
--- NOTE | 2023-10-25 10:05 | PT.IPTN ---
Current Diagnoses Unilateral primary osteoarthritis, right hip (10/24/23) Surgery Performed Operation Date: 10/24/23 07:45 Actual Procedures p Total Hip Arthroplasty(Right) - Marcy Cohn MD Physical Therapy Treatment Note M2 PT-IP Current Condition Start: 10/24/23 15:43 Freq: NEEDED Status: Active Protocol: Document 10/24/23 13:45 AB (Rec: 10/24/23 16:01 AB [id number]) Physical Therapy Current Condition Current Condition Evaluation Date 10/24/23 Treatment Diagnosis s/p R ALEXANDER posterior; difficulty in walking Onset Date 10/24/23 M3 PT-IP Subjective Start: 10/24/23 15:43 Freq: NEEDED Status: Active Protocol: Document 10/25/23 10:05 AB (Rec: 10/25/23 12:36 AB [id number]) Subjective Physical Therapy Visit Type Type Treatment Note Visit Start Time 10:05 Visit Stop Time 11:30 Number of HOLDER PILE DRIVING Visits 0 Physical Therapy Visit Comments Patient Comments agreeable to do PT Therapy Pain Assessment Pain When Pain Assessed At Rest Pain Present Pain Present Pain Reported Location Right Hip Intensity 2 Scale Used Numeric (0 - 10) Pain Management Techniques Apply Cold,Distraction, Modification of Treatment,Re- positioning,Timing of Activity with Medications M4 PT-IP Mobility and Gait Start: 10/24/23 15:43 Freq: NEEDED Status: Active Protocol: Document 10/25/23 10:05 AB (Rec: 10/25/23 12:36 AB [id number]) PT-Bed Mobility Assessment Supine to Sit Supine to Sit Standby Assistance,Maximum Assistance Sit to Supine Sit to Supine Standby Assistance,Minimal Assistance PT-Transfer Assessment Sit to and From Stand Sit to and from Stand Contact Guard Assistance, Moderate Assistance,1 Person Assistance,Use of Upper Extremities Equipment Transfer Assistive Device Gait Belt,Front Wheeled Walker Orthotic/Prosthetic Devices or Brace: No Transfers Transfer Destination Bed,Chair,Toilet Transfer Technique ambulated Transfer Ability Level of Assist Contact Guard Assistance,1 Person Assistance,Use of Upper Extremities Comments Mobility Comments pt sitting on the chair and agreeable to do PT. pt stated that she is feeling and doing better today and per Dr. Cohn, plan is for her to go home and not go to SNF even if she has to stay in the hospital for one more day. Bed mobility training: pt stated that she usually goes in/out from the L side of the bed and prefers to continue going in/out that side of the bed. informed pt regarding getting in/out L side of the bed vs R side of the bed. pt understood but still prefers to go L side of the bed. pt completed sit to stand from the chair CGA and max cues. pt tends to lean away towards the L with tendency to IR RLE. cued pt to correct. pt ambulated to L side of the bed . pt stated that she has a back strap washer that she uses as a leg lift to assist her leg up on to the bed but also has a leg occupational therapist assistant but prefers the back strap washer. showed pt how to properly use leg occupational therapist assistant. pt attempted to completed sit to supine using a leg occupational therapist assistant max A and max cues. unable to elevate RLE up to the bed even with leg occupational therapist assistant requiring max A. pt go back to sitting positioned min A. pt instructed to ambulate to the R side of the bed CGA using FWW. completed sit<>supine SBA using leg occupational therapist assistant but with max cues for instructions and precautions. pt now agreed to get in/out of the R side of the bed and use leg occupational therapist assistant. pt completed step transfer to chair using FWW CGA. pt requested to use the toilet. sit to stand from the chair CGA and ambulated to the toilet using FWW CGA. pt required mod A fo sitting and max cues for LE positioning prior to sitting for hip precautions. pt able to manage brief CGA for safety. pt completed sit to stand from the toilet mod A and max cues . pt with increase RLE internal rotation while attempting to stand. instructed pt to sit and correct. educated pt again on safety and her precautions. pt ambulated towards the sink using FWW CGA and was able to maintain standing CGA while completeing handwashing. pt agreed to do ambulated ~ 125 ft using FWW CGA and cues for safety. stair climbing training: pt stated that she has 7 steps with L rail to enter the house but also has 1 platform step. PT demonstrated and educated pt on stair climbing techniques. pt completed up/ down 3 steps using L rail + hurrycane CGA and max cues. pt repeated x 2 sets. pt also completed up/down platform step using FWW CGA and cues. assisted pt back to her room. ambulated from w/c to chair using fWW CGA. positioned pt on the chair. call light and table placed within reach. pt's brother arrived. instructed pt's brother to ready post-op folder provided to pt so that he will be able to remind pt at home during mobility. brother understood. Gait Assessment Gait Gait Assistance Required: Contact Guard Assist Distance (Feet) 125 Able to Maintain Weight Bearing Status Yes During Gait Assistive Devices Assistive Device Gait Belt,Front Wheeled Walker Orthotic/Prosthetic Devices or Brace: No Gait Deviations General Gait Pattern Antalgic,Decreased Stride Length,Lateral Trunk Lean,Step -to Gait Factors Limiting Gait Function Factors Limiting Gait Function Decreased Activity Tolerance, Decreased Strength,Difficulty Following Directions,Limited Range of Motion,Pain,Poor Balance,Poor Safety Awareness Stair Climbing Assessment Evaluation Level of Assist On Stairs Minimal Assistance Devices Stair Climbing Assistive Devices Tripod Cane/Hurry Cane,Front Wheel Walker,Left Railing Technique/Endurance Stair Climbing Direction Ascend and Descend Stair Climbing Technique Step to Step Number of Steps Climbed 3 Stair Climbing Set # Repetitions (reps) 2 M5 PT-IP Objective Assessments Start: 10/24/23 15:43 Freq: NEEDED Status: Active Protocol: Document 10/24/23 13:45 AB (Rec: 10/24/23 16:01 AB [id number]) Orientation Orientation/Cognition Level of Alertness Alert Orientation Name,Place,Situation Language Function Ability No Deficits Noted Safety Awareness Decreased Safety Awareness Memory Description No Deficits Noted Gross Range of Motion Lower Extremity ROM Assessment Within Functional Limits Strength Lower Extremity Strength Assessment Right Impaired Hip 3+/5 Knee 4-/5 M6 PT-IP Treatment Start: 10/24/23 15:43 Freq: NEEDED Status: Active Protocol: Document 10/25/23 10:05 AB (Rec: 10/25/23 12:36 AB [id number]) Physical Therapy Treatment Education Education Provided Precautions,Weight Bearing Status,Post-Op Packet,Safety M7 PT-IP Assessment and Plan Start: 10/24/23 15:43 Freq: NEEDED Status: Active Protocol: Document 10/25/23 10:05 AB (Rec: 10/25/23 12:36 AB [id number]) PT Summary Assessment and Plan Potential Rehabilitation Potential Fair Summary Impairments Pain,ROM,Strength,Balance, Coordination,Sensation,Tone, Cognition,Bed Mobility, Transfers,Gait,Activity Tolerance Progress Towards Goals Slow Progress - Other Assessment Summary pt progressing with mobility but continues to require max cues for hip precautions. pt's brother will not be able to provide pt with physical assistance to pt especially for toileting or shower needs. will continue to assess progress. d/c plan: SNF vs home 21/11 and HHPT. Goals Bed Mobility Goal Standby Assistance Transfer Goal Standby Assistance,Front Wheeled Walker Gait Goal Standby Assistance,Front Wheel Walker Gait Distance 100 Other Goals improve bed mobility, transfers, ambulation using FWW ~ 250 ft SBA up/down 7 steps L rail ascending + hurrycane, 4 steps R rail ascending + hurrycane SBA Days to Meet Goals 5 Frequency of Treatment Frequency Of Treatment Twice a Day Treatment Plan Physical Therapy Treatment Plan Bed Mobility Training,Transfer Training,Gait Training, Therapeutic Exercise,Balance Retraining,Post Op Education, Discharge Planning,Hot or Cold Pack,Neuromuscular Re-ed, Coordination Retraining,Manual Therapy Precautions Posterior Hip Precautions No Hip Flexion > 90 degrees,No Hip Internal Rotation,No Hip Adduction Weight Bearing Status Weight Bearing Status Weight Bear as Tolerated Allowed Weight Bearing Amount (enter % RLE WBAT or #) (%) Recommendations To Nursing Amount of Assist Needed 1 Person Assist Discharge Recommendations PT Discharge Recommendations Home with 21/11 Assist Available,Home Health,SNF Rehab Transportation Needs at Discharge Private Vehicle,Wheelchair/ Cabulance
[2023-10-25 12:00] VITALS: BP 106/34; PULSE 97; RESP 17; TEMP 36.3
[2023-10-25] MEDS: APIXABAN 5 MG TABLET PO ×2 (13:22→20:52)
--- NOTE | 2023-10-25 13:38 | CM.DANOTE ---
Initial DCP Assessment Visit Note Reviewed EMR and team rounds for pt's medical status and updates. Met with pt at bedside to introduce self and role, pt was found to be alert/oriented, sitting upright in bed appearing comfortable. Pt resides modified independently in her own home with her brother. Her brother reportedly is unable to assist with her care needs due to his own mobility and health issues. Transportation has not yet been determined for d/c home. Payor: Medicare Attending: Dr. Marcy Cohn Pt is a 82 year-old F post-op day 1 from a R-total hip arthroplasty surgery. She is having minimal pain postoperatively, however she is slow to progress with PT/OT today, able to ambulate but unable to lift her right leg without a leg improvement director and max assist. Pt was relying her her brother to help her for home d/c, however he uses a cane and is unable to assist. Per Dr. Cohn, plan is still for pt to d/c home, at this point, likely tomorrow. DCP will continue to follow and assist with any further evolving needs/recommendations for d/c. Discharge Planning/Care Management Advanced directive, confirm from FAMILY Start: 10/24/23 11:12 Freq: Q24H Status: Active Protocol: Document 10/24/23 11:12 CEW (Rec: 10/24/23 11:35 CEW [id number]) Advance Directive, confirm on record Time 11:10 Person contacted pt Copy received No Document 10/25/23 12:41 CEW (Rec: 10/25/23 12:41 CEW [id number]) Advance Directive, confirm on record Time 11:10 Person contacted pt Copy received No Person contacted Patient Copy received No CM Discharge Assessment Start: 10/25/23 13:28 Freq: Status: Active Protocol: Document 10/25/23 13:28 DPL (Rec: 10/25/23 13:38 DPL [id number]) Discharge Planning Assessment Assigned Horticultural Specialty Grower [employer] Advance Directives? Yes Advance Directives on File No History Provided By Patient,Medical Record Has Patient been admitted in last 30 No days? Prior Living Arrangements House Household Members family,other Type of transporation used prior to Relies on Others admit Independent with ADL's Yes Is patient alert and oriented? Yes Caregiver for Another No: Her brother has his own health issues. DME Already Rented / Owned Bath Bench,Elevated Toilet Seat,FWW / Walker,Cane Patient/Family Preference Home with Home Health Barriers to Discharge Yes Comment Pt does not have a home cg, and is not able to meet her home recovery milestones due to weakness and slow progress with PT. Discharge Plan Home Community Services Physical Therapy,Home Health Aid Transportation Arrangement not yet determined Referrals Initiated Home Health If patient plan is home with home health No : Has signed face to face form been completed? Medicare Choice List Provided Yes Medicare choice list reviewed on patient electronic tablet with Whiteboard Updated in Patient Room with Yes name and ext. # of Horticultural Specialty Grower Inside Review Status In Process Please Provide Date Initial DC 10/25/23 Assessment Was Performed Pre-Anesthesia Assessment Start: 10/17/23 12:40 Freq: Status: Complete Protocol: Document 10/18/23 10:22 CAB (Rec: 10/17/23 13:17 CAB [id number]) Pre-Anesthesia Assessment Patient Information Reviewed Via Phone Assessment Assessment Completed With Patient Diagnostic Results BMP/CMP,CBC,EKG Comment Labs @ outside EKG scanned Primary Care Provider Gladys Drew Seen Specialist in Last 12 Months Yes Specialist Seen Hogshead Wrecker,Opthamologist/ Sales Agent [employer],Orthopedist Primary Language Sudanese Preferred Language Sudanese Height 171.45 cm Weight 99.79 kg Body Mass Index (BMI) 33.9 Hearing Ability Normal Visual Impairment No Limitations Visual Assist None Dentition Type Teeth, Natural Present Barriers to Learning None Hx Anesthesia Reactions Yes: Hard to bring me back, I would like a spinal, nausea Hx Family Anesthesia Reaction No Hx Malignant Hyperthermia No Hx Blood Transfusions No Anesthesia Review Requested No Hospital Secretary No alcohol intake never alcohol intake frequency 0-2 drinks per day Smoking Status Never smoker Substance Use Type does not use Pain Present Pain Reported Musculoskeletal Symptoms Abnormal Gait,Difficulty Walking,Joint Pain History of Falling (Recent or History of No ) Patient is completely paralyzed or No completely immobile Prosthesis or Orthotic Device Cane Mental Status Oriented to own ability Is patient on oxygen? No Does patient have LEBRON/SOB Yes: Occasional with going up & down stairs, laying in bed Hx Sleep Apnea No CPAP/BIPAP use not prescribed Currently Taking a Beta Alirio Yes: Metoprolol Can You Climb a Flight of Stairs Without No SOB Hx Chest Pain Yes: Work up @ ED 09/10/23 Hx SOB Yes: Occasional with going up & down stairs, laying in bed Hx Syncope or Dizziness Yes Anti-Coagulant Therapy Yes: Eliquis-pt will hold 3 days prior per surgeon office Has a Hogshead Wrecker Yes: Pre-op visit 09/28/[address] Quiñones @ [facility] Cardiac Testing Yes: Perfusion study @ [facility] 10/04/23-low risk study Hx Pacemaker/ICD No Pacemaker Rep Required? No Cardiac Clearance Received Yes Comment Clearance noted at end of perfusion study Additional comment Cardiac records scanned and in surgery folder Diet Type At Home Regular Dysphagia No Gastrointestinal Symptoms Reflux Bladder Pattern Incontinent Urinary Catheter Present No Hx Urinary Self Catheterization No Diabetes No HgbA1C 5.1 Date 07/19/23 Patient No Lactating No Hx Drug Resistant Organism No Presence of External or Internal Medical Yes: Bilat eye lens, bilat Devices knee prosthesis, left hip Marital Status / Lives With family,other Current Living Arrangements House Number of Floors (Floors) Two Floors Support System Child/Children,Sibling(s) Does the Patient Have Assistance After Yes: Brother lives downstairs Surgery and can assist w/care @ DC Patient Discharge Plan Description Return Home Comment Pt advised overnight length of stay per surgeon Feels Safe in Current Environment Yes Been Physically Hurt or Threatened By a No Person in Current Environment Do you have thoughts of harming yourself None or others? Are you currently considering suicide? No Do you have a plan to hurt yourself or No Plan others? Do You Have Any Spiritual Beliefs That No May Affect Your HC Choices? Do You Have Any Cultural Practices That No May Affect Your HC Choices? Comment Religious Who Can We Speak to About Patient's Care Family, friends Identifying Code for Release of Patient Declines to issue Information Health Care Proxy/Next of Kin Fidel (son) Health Care Proxy Emergency Contact Name Earl (brother) Emergency Contact Advance Directives? No Power of Panel Monitor No PAC Instructions Do not shave/clip surgical site,Durable medical equipment ,Medications to take/avoid, Nasal antibiotic,No ETOH/ petroleum product on skin DOS, NPO,Pre-surgical wash,Sensory aids,Sturdy shoes/comfortable clothes,Do not bring valuables and remove jewelry
--- NOTE | 2023-10-25 14:10 | PT.IPTN ---
Current Diagnoses Unilateral primary osteoarthritis, right hip (10/24/23) Surgery Performed Operation Date: 10/24/23 07:45 Actual Procedures p Total Hip Arthroplasty(Right) - Marcy Cohn MD Physical Therapy Treatment Note M2 PT-IP Current Condition Start: 10/24/23 15:43 Freq: NEEDED Status: Active Protocol: Document 10/24/23 13:45 AB (Rec: 10/24/23 16:01 AB [id number]) Physical Therapy Current Condition Current Condition Evaluation Date 10/24/23 Treatment Diagnosis s/p R ALEXANDER posterior; difficulty in walking Onset Date 10/24/23 M3 PT-IP Subjective Start: 10/24/23 15:43 Freq: NEEDED Status: Active Protocol: Document 10/25/23 14:10 AB (Rec: 10/25/23 17:44 AB [id number]) Subjective Physical Therapy Visit Type Type Treatment Note Visit Start Time 14:10 Visit Stop Time 15:20 Number of MOTEL MANAGER Visits 0 Physical Therapy Visit Comments Patient Comments agreeable to do PT Therapy Pain Assessment Pain When Pain Assessed During Mobility Pain Present Pain Present Pain Reported Location Right Hip Intensity 7 Scale Used Numeric (0 - 10) Pain Management Techniques Apply Cold,Distraction, Modification of Treatment,Re- positioning,Timing of Activity with Medications M4 PT-IP Mobility and Gait Start: 10/24/23 15:43 Freq: NEEDED Status: Active Protocol: Document 10/25/23 14:10 AB (Rec: 10/25/23 17:44 AB [id number]) PT-Bed Mobility Assessment Supine to Sit Supine to Sit Standby Assistance,Minimal Assistance,Moderate Assistance ,1 Person Assistance Sit to Supine Sit to Supine Standby Assistance PT-Transfer Assessment Sit to and From Stand Sit to and from Stand Contact Guard Assistance,1 Person Assistance,Use of Upper Extremities Equipment Transfer Assistive Device Gait Belt,Front Wheeled Walker Orthotic/Prosthetic Devices or Brace: No Transfers Transfer Destination Bed Transfer Technique ambulated Transfer Ability Level of Assist Contact Guard Assistance,1 Person Assistance,Use of Upper Extremities Comments Mobility Comments pt sitting on the chair. brother in room. informed brother regarding pt's hip precautions and to remind pt if needed. pt completed sit to stand CGA and max cues for techniques. pt continues to have difficuty with carryover of precautions and safety and needing cues to bring LE forwards and reaching back with hands before sitting. pt ambulated in room using FWW ~ 15 ft CGA and sat on EOB. pt again required cues for hip precautions. pt completed sit to supine min to mod A for LE elevation. showed pt's brother on how to assist pt if needed. pt used leg cloth bleaching range back tender to assist LE but still required assist to elevate RLE up. pt completed supine to sit SBA. pt completed sit<> supine again and was able to complete SBA after 4 attempt. sit<>stand training. pt completed x 6 reps CGA and max cues for precautions and safety. pt able to complete towards the end with only SBA and occassional min cues. pt ambulated in the hallway using FWW CGA ~ 125 ft. pt completed up/down steps using L rail ascending + hurrycane CGA and completed again using R rail ascending + hurrycane CGA. assisted pt back to her room. sit to stand from w/c CGA and no cues needed and pt ambulated to the EOB SBA to CGA using fWW. pt completed sit to supine SBA using leg cloth bleaching range back tender. positioned pt in bed. call light and table placed within reach. Gait Assessment Gait Gait Assistance Required: Standby Assistance,Contact Guard Assist Distance (Feet) 125 Able to Maintain Weight Bearing Status Yes During Gait Assistive Devices Assistive Device Gait Belt,Front Wheeled Walker Orthotic/Prosthetic Devices or Brace: No Gait Deviations General Gait Pattern Antalgic,Decreased Stride Length,Decreased Feet Clearance Factors Limiting Gait Function Factors Limiting Gait Function Decreased Activity Tolerance, Decreased Strength,Difficulty Following Directions,Limited Range of Motion,Pain,Poor Balance,Poor Safety Awareness Stair Climbing Assessment Evaluation Level of Assist On Stairs Contact Guard Assistance Devices Stair Climbing Assistive Devices Tripod Cane/Hurry Cane,Left Railing,Right Railing Technique/Endurance Stair Climbing Direction Ascend and Descend Stair Climbing Technique Step to Step Number of Steps Climbed 3 Stair Climbing Set # Repetitions (reps) 2 M5 PT-IP Objective Assessments Start: 10/24/23 15:43 Freq: NEEDED Status: Active Protocol: Document 10/24/23 13:45 AB (Rec: 10/24/23 16:01 AB [id number]) Orientation Orientation/Cognition Level of Alertness Alert Orientation Name,Place,Situation Language Function Ability No Deficits Noted Safety Awareness Decreased Safety Awareness Memory Description No Deficits Noted Gross Range of Motion Lower Extremity ROM Assessment Within Functional Limits Strength Lower Extremity Strength Assessment Right Impaired Hip 3+/5 Knee 4-/5 M6 PT-IP Treatment Start: 10/24/23 15:43 Freq: NEEDED Status: Active Protocol: Document 10/25/23 14:10 AB (Rec: 10/25/23 17:44 AB [id number]) Physical Therapy Treatment Education Education Provided Precautions,Safety M7 PT-IP Assessment and Plan Start: 10/24/23 15:43 Freq: NEEDED Status: Active Protocol: Document 10/25/23 14:10 AB (Rec: 10/25/23 17:44 AB [id number]) PT Summary Assessment and Plan Potential Rehabilitation Potential Fair Summary Impairments Pain,ROM,Strength,Balance, Coordination,Sensation,Tone, Cognition,Bed Mobility, Transfers,Gait,Activity Tolerance Progress Towards Goals Slow Progress due to Pain,Slow Progress - Other Assessment Summary pt progressing slowly with mobility and continues to require CGA and cues with mobility. pt required repetitions to carryover precautions with mobility and initially requiring max cues but able to complete with only occasional cues towards end of tx session. pt plans to go home and will require HHPT at this time. will continue to assess. informed pt regarding HHPT recommendation and pt understood. Goals Bed Mobility Goal Standby Assistance Transfer Goal Standby Assistance,Front Wheeled Walker Gait Goal Standby Assistance,Front Wheel Walker Gait Distance 100 Other Goals improve bed mobility, transfers, ambulation using FWW ~ 250 ft SBA up/down 7 steps L rail ascending + hurrycane, 4 steps R rail ascending + hurrycane SBA Days to Meet Goals 5 Frequency of Treatment Frequency Of Treatment Twice a Day Treatment Plan Physical Therapy Treatment Plan Bed Mobility Training,Transfer Training,Gait Training, Therapeutic Exercise,Balance Retraining,Post Op Education, Discharge Planning,Hot or Cold Pack,Neuromuscular Re-ed, Coordination Retraining,Manual Therapy Precautions Posterior Hip Precautions No Hip Flexion > 90 degrees,No Hip Internal Rotation,No Hip Adduction Weight Bearing Status Weight Bearing Status Weight Bear as Tolerated Allowed Weight Bearing Amount (enter % RLE WBAT or #) (%) Recommendations To Nursing Amount of Assist Needed 1 Person Assist Discharge Recommendations PT Discharge Recommendations Home with 21/11 Assist Available,Home Health,SNF Rehab Transportation Needs at Discharge Private Vehicle,Wheelchair/ Cabulance
--- NOTE | 2023-10-25 16:35 | OT.IP.TRT ---
Current Diagnoses Unilateral primary osteoarthritis, right hip (10/24/23) Surgery Performed Operation Date: 10/24/23 07:45 Actual Procedures p Total Hip Arthroplasty(Right) - Marcy Cohn MD Occupational Therapy Treatment Note M2 OT-IP Current Condition Start: 10/24/23 15:13 Freq: Status: Active Protocol: Document 10/24/23 15:13 [facility] (Rec: 10/24/23 15:29 [facility] [id number]) Occupational Therapy Current Condition Current Condition Evaluation Date 10/24/23 Treatment Diagnosis S/P R ALEXANDER Posterior approach Diagnosis Onset Date 10/24/23 Post Operative Precautions Posterior Hip Precautions No Hip Flexion > 90 degrees,No Hip Internal Rotation,No Hip Adduction M3 OT- IP Subjective and Pain Start: 10/24/23 15:13 Freq: Status: Active Protocol: Document 10/25/23 16:42 [facility] (Rec: 10/25/23 16:46 [facility] [id number]) OT- Subjective Occupational Therapy Visit Type Type Treatment Note Visit Start Time 17:25 Visit Stop Time 17:40 Occupational Therapy Visit Comments Patient Comments Pt tearful as feeling awful that she is not able to recall and follow her hip precautions consistently. Patient/Caregiver Goals To go home. M6 OT- IP Functional Cognition Start: 10/24/23 15:13 Freq: Status: Active Protocol: Document 10/25/23 16:42 [facility] (Rec: 10/25/23 16:46 [facility] [id number]) Cognitive Factors Limiting Selfcare Function Cognitive Comments Cognitive Assessment Comments Able to write out with pt her steps to follow when coming to stand and sitting down. Pt states learns better when able to absorb the information and able to go over it often. M8 OT- IP Objective Assessments Start: 10/24/23 15:13 Freq: Status: Active Protocol: Document 10/24/23 15:13 [facility] (Rec: 10/24/23 15:29 [facility] [id number]) OT Gross Range of Motion Upper Extremity Range of Motion Assessment Within Functional Limits OT Strength Upper Extremity Strength Assessment Within Functional Limits M9 OT- IP Assessment and Plan Start: 10/24/23 15:13 Freq: Status: Active Protocol: Document 10/25/23 10:15 [facility] (Rec: 10/25/23 10:24 [facility] [id number]) OT Summary Assessment and Plan Potential Rehabilitation Potential Excellent Analytic Complexity at Evaluation Low Summary OT Impairments Pain,Strength,Functional Mobility,Grooming,Dressing, Toileting,Bathing,Toilet Transfers,Shower Transfers, Activity Tolerance Progress Towards Goals Progressing Toward Goals Assessment Summary Pt seen a second time as very tearful of feeling like she is failing to recall her hip precautions for ADL and mobility needs when stopping by to check on the pt in PM. Able to come up with reminders on a piece of paper with the pt to help her recall what to do. Pt doing much better after talking to her. Toileting Goal Independent Bathing Goal Independent Toilet Transfer Goal Independent Shower Transfer Goal Independent Days to Meet Goals 5 Frequency of Treatment Frequency Of Treatment Once a Day Treatment Plan OT Treatment Plan ADL Training,Functional Mobility,Patient/Family Education,Discharge Planning Discharge Recommendations OT Discharge Recommendations Home with 21/11 Assist Available,Outpatient PT Transportation Needs at Discharge Private Vehicle
[2023-10-25 17:35] VITALS: BP 115/59; PULSE 62; RESP 18; TEMP 36.1; O2SAT 97
[2023-10-25 20:00] VITALS: BP 127/50; PULSE 65; RESP 18; TEMP 37.1; O2SAT 95
[2023-10-26] MEDS: OXYCODONE IR 5 MG TABLET PO (02:41)
[2023-10-26] MEDS: ACETAMINOPHEN 325 MG TABLET 650 MG PO ×2 (02:43→10:00)
[2023-10-26 06:00] VITALS: BP 132/84; PULSE 66; RESP 18; TEMP 37; O2SAT 96
--- NOTE | 2023-10-26 07:30 | P.DS_ITS ---
History of Present Illness History of Present Illness Chief complaint: Right ALEXANDER *OPB* Narrative: Karo is a pleasant 82 year old female who is POD#2 s/p right posterior ALEXANDER by Dr. Conh. This morning patient reports she is feeling well overall, better than yesterday. Pain is moderate, well controlled on oral pain medication. She lives at home with her brother who is willing and able to provide some additional postop care. Postop physical therapy appointments scheduled w/ . Urinating well without issue however patient c/o of some mild RLQ abdominal pain, she feels it is likely related to the fact that she has not a bowel movement since Monday. Denies fever, chills, chest pain, SOB, nausea, vomiting. Operative Date/Time/Diagnoses Date of procedure: 10/24/23 Time of procedure: 08:00 Pre-op diagnosis: SEVERE RIGHT HIP OA Post-op diagnosis: same Procedure & Clinicians Procedure: Right total hip arthroplasty posterior approach Same procedure as scheduled: Yes Indications: The patient has had progressively worsening right hip pain with radiographic changes consistent with arthritis. Non-operative management has failed and the patient has requested total hip replacement. The risks, benefits and alternatives to surgery were discussed with the patient prior to proceeding. Risks discussed included, but were not limited to, failure to relieve pain, leg length discrepancy, dislocation, stiffness, infection, nerve damage, deep venous thrombosis, pulmonary embolism, stroke, coma, heart attack, permanent paralysis and , as well as the potential need for eventual revision of the prosthetic. Surgeon: Marcy Cohn Opener Verifier [employer]: Fidel Ford Anesthesia Type: General and Spinal Discharge Providers Provider Discharge Date: 10/26/23 Primary care physician: SHAKIRA Purcell Consults: 10/24/23 06:00 Consult to Anesthesiology Routine Comment: Consulting Provider: Anesthesiologist Reason for consultation: Regional block for post operative pain control Has provider been notified: No 10/24/23 10:52 Consult to Discharge Planning Routine Comment: Consult to Occupational Therapy Evaluate & Treat Comment: Physician Instructions: Evaluate and treat Consult to Physical Therapy Evaluate & Treat Comment: Physician Instructions: post op ALEXANDER protocol 10/24/23 11:11 Consult to Pastoral Services Routine Comment: Wants someone to talk to. Discharge provider: Madie Lux PA-C Summary Hospital Course Discharge Diagnosis: right hip OA s/p R ALEXANDER, Stable. Hospital Course: Hospital course complicated by difficulty mobilizing on postop day 1. Exam Vital Signs (past 8 hours): - 10/26/23 06:00 Temperature 98.6 F Pulse Rate 66 Respiratory Rate 18 Blood Pressure 132/84 Pulse Oximetry 96 Oxygen Flow Rate 0 Oxygen Delivery Method Room Air Oxygen Flow Rate 0 Narrative Exam Narrative: Patient lying comfortably in bed during interview today. No acute distress. SCDs on and functioning. 5/5 strength with DF, PF, EHL bilaterally. Gross sensation intact to light touch throughout bilateral lower extremities. Calf soft and nontender bilaterally. Resp Effort & Inspection: normal respiratory effort and able to speak in complete sentences Cardio Other: PT pulses intact, brisk capillary refill. GI Other: Mildly tender to deep palpation of the RLQ. No rebound tenderness. Skin Other: Ani dressing functioning, CDI. 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 Plan of Treatment: 1) Plan to discharge to home today with brother pending PT evaluation. Enema ordered to aid patient BM. 2) Continue multimodal pain management with ice to the hip for additional pain control. Postop pain medications have been sent to patient's refill pharmacy. 3) Patient is to resume preop Eliquis dose which will also serve as DVT prophylaxis. 4) Start outpatient physical therapy to work on range of motion and mobility. Weightbearing as tolerated, maintain posterior hip precautions. 5) Keep dressing intact, clean, dry until 2 week postop appointment. No soaking the incision site in pools or tubs. No topical ointments or creams to the incision site. 6) Follow up at [facility] orthopedics in 2 weeks for a postop appointment and wound check. All patient's questions were answered, she demonstrates understanding and is in agreement with the plan. Call our office if any questions or concerns arise. Discharge Plan Discharge Plan Patient Disposition: Home Provider Discharge Comment: Rxs for Zofran and oxycodone sent to [facility] from our office at preop appt. Discharge orders & Medications Discharge Orders: Discharge (Order); Ordered 10/26/23 Ordered By: Madie Lux Prescriptions: New docusate sodium 100 mg Capsule 100 mg PO BID Qty: 30 0RF Continued Eliquis 5 mg tablet 5 mg PO BID Qty: 30 0RF metoprolol succinate 25 mg tablet extended release 24 hr 12.5 mg PO DAILY Qty: 30 0RF potassium chloride 10 mEq Capsule, Extended Release 10 meq PO DAILY furosemide 20 mg Tablet 20 mg PO DAILY Changed acetaminophen [Tylenol Extra Strength] 500 mg Tablet 1,000 mg PO Q8H PRN (Reason: Pain) Qty: 90 0RF Follow up/Referrals: Marcy Cohn MD [Physician] - 11/07/23 10:30 am (Follow up w/ Italo Dixon PA-C, at [facility] office in [place].) Gladys Drew ARNP [Primary Care Provider] - Diet/Activity/Treatments Diet: Diet as Tolerated Activity: Weightbearing as tolerated to right leg, posterior hip precautions. Cold/Heat Therapy: Ice to hip as needed for pain. Skin/Wound/Dressing Care Report to your healthcare provider any signs of infection, such as:: chills, fever, night sweats, unusual drainage and unusual redness Dressing: May shower. Leave dressing in place until follow up in office. No bathing or otherwise soaking incision. Call the office if the dressing becomes saturated inside. Visit Report/Discharge Packet Instructions: DI for Hip Replacement, DI for Constipation, How to Prevent Falls, DI for Prescription Opioid Use Stand Alone Forms: Patient Portal/API, [facility] ANI Drain, Surgery Discharge Discharge Data Primary Care Provider: Gladys Drew Attending Provider: Marcy Cohn
[2023-10-26 08:00] VITALS: BP 126/55; PULSE 60; RESP 16; TEMP 36.3; O2SAT 95
--- NOTE | 2023-10-26 08:10 | CM.DPC ---
DCP Cont. Reviewed EMR and team rounds for status updates. Entered order for Home Health, sent referral to [facility] for review. Pt has been medically cleared for home discharge. Her brother will be transporting her back home. No further DCP needs identified at this time.
--- NOTE | 2023-10-26 08:52 | PT.IPTN ---
Current Diagnoses Unilateral primary osteoarthritis, right hip (10/24/23) Surgery Performed Operation Date: 10/24/23 07:45 Actual Procedures p Total Hip Arthroplasty(Right) - Marcy Cohn MD Physical Therapy Treatment Note M2 PT-IP Current Condition Start: 10/24/23 15:43 Freq: NEEDED Status: Active Protocol: Document 10/24/23 13:45 [facility] (Rec: 10/24/23 16:01 AB [id number]) Physical Therapy Current Condition Current Condition Evaluation Date 10/24/23 Treatment Diagnosis s/p R ALEXANDER posterior; difficulty in walking Onset Date 10/24/23 M3 PT-IP Subjective Start: 10/24/23 15:43 Freq: NEEDED Status: Active Protocol: Document 10/26/23 09:16 TS (Rec: 10/26/23 09:27 TS [id number]) Subjective Physical Therapy Visit Type Type Treatment Note Visit Start Time 08:52 Visit Stop Time 09:15 Number of PRINCIPAL ENGINEER Visits 1 Physical Therapy Visit Comments Patient Comments Pt found resting in chair, reports pain is 6/10 with mobility today, is agreeable to PT. Therapy Pain Assessment Pain When Pain Assessed During Mobility Pain Present Pain Present Allowed to Sleep Location Right Hip Intensity 6 Scale Used Numeric (0 - 10) Pain Management Techniques Apply Cold,Distraction, Modification of Treatment,Re- positioning,Timing of Activity with Medications M4 PT-IP Mobility and Gait Start: 10/24/23 15:43 Freq: NEEDED Status: Active Protocol: Document 10/26/23 09:16 TS (Rec: 10/26/23 09:27 TS [id number]) PT-Transfer Assessment Sit to and From Stand Sit to and from Stand Contact Guard Assistance,1 Person Assistance,Use of Upper Extremities Equipment Transfer Assistive Device Gait Belt,Front Wheeled Walker Orthotic/Prosthetic Devices or Brace: No Comments Mobility Comments Pt recalled 3/3 hip precautions. STS from chair CGA with cues for pushing from arms of cair. She ambulated with a step to gait with FWW to stairs ~125', pt c/o increasing pain. She performed stairs x3 with B handrails SBA. She required w/c back to room due to pain. Pt was left in chair, all needs met. Gait Assessment Gait Gait Assistance Required: Standby Assistance Distance (Feet) 125 Able to Maintain Weight Bearing Status Yes During Gait Assistive Devices Assistive Device Gait Belt,Front Wheeled Walker Orthotic/Prosthetic Devices or Brace: No Gait Deviations General Gait Pattern Antalgic,Decreased Stride Length,Decreased Feet Clearance Factors Limiting Gait Function Factors Limiting Gait Function Decreased Activity Tolerance, Decreased Strength,Difficulty Following Directions,Limited Range of Motion,Pain,Poor Balance,Poor Safety Awareness Stair Climbing Assessment Evaluation Level of Assist On Stairs Standby Assistance Devices Stair Climbing Assistive Devices Left Railing,Right Railing Technique/Endurance Stair Climbing Direction Ascend and Descend Stair Climbing Technique Step to Step Number of Steps Climbed 3 PT-Balance Assessment Sitting Balance and Reactions Static Sitting Balance Ability Normal Dynamic Sitting Balance Ability Good Standing Balance and Reactions Static Standing Balance Ability Good Dynamic Standing Balance Ability Fair Device Used FWW M5 PT-IP Objective Assessments Start: 10/24/23 15:43 Freq: NEEDED Status: Active Protocol: Document 10/24/23 13:45 [facility] (Rec: 10/24/23 16:01 AB [id number]) Orientation Orientation/Cognition Level of Alertness Alert Orientation Name,Place,Situation Language Function Ability No Deficits Noted Safety Awareness Decreased Safety Awareness Memory Description No Deficits Noted Gross Range of Motion Lower Extremity ROM Assessment Within Functional Limits Strength Lower Extremity Strength Assessment Right Impaired Hip 3+/5 Knee 4-/5 M6 PT-IP Treatment Start: 10/24/23 15:43 Freq: NEEDED Status: Active Protocol: Document 10/26/23 09:16 TS (Rec: 10/26/23 09:27 TS [id number]) Physical Therapy Treatment Education Education Provided Precautions,Safety M7 PT-IP Assessment and Plan Start: 10/24/23 15:43 Freq: NEEDED Status: Active Protocol: Document 10/26/23 09:16 TS (Rec: 10/26/23 09:27 TS [id number]) PT Summary Assessment and Plan Potential Rehabilitation Potential Fair Summary Impairments Pain,ROM,Strength,Balance, Coordination,Sensation,Tone, Cognition,Bed Mobility, Transfers,Gait,Activity Tolerance Progress Towards Goals Progressing Toward Goals Assessment Summary Karo is progressing well with her mobility. She is SBA for STS and SBA for gait with a step to pattern and use of FWW. She performed stairs with B handrails SBA. She c/o increasing pain with gait that limited her mobility. PT is recommending home with 21/11 assist and HHPT. Goals Bed Mobility Goal Standby Assistance Transfer Goal Standby Assistance,Front Wheeled Walker Gait Goal Standby Assistance,Front Wheel Walker Gait Distance 100 Other Goals improve bed mobility, transfers, ambulation using FWW ~ 250 ft SBA up/down 7 steps L rail ascending + hurrycane, 4 steps R rail ascending + hurrycane SBA Days to Meet Goals 5 Frequency of Treatment Frequency Of Treatment Twice a Day Treatment Plan Physical Therapy Treatment Plan Bed Mobility Training,Transfer Training,Gait Training, Therapeutic Exercise,Balance Retraining,Post Op Education, Discharge Planning,Hot or Cold Pack,Neuromuscular Re-ed, Coordination Retraining,Manual Therapy Precautions Posterior Hip Precautions No Hip Flexion > 90 degrees,No Hip Internal Rotation,No Hip Adduction Weight Bearing Status Weight Bearing Status Weight Bear as Tolerated Allowed Weight Bearing Amount (enter % RLE WBAT or #) (%) Recommendations To Nursing Amount of Assist Needed 1 Person Assist Discharge Recommendations PT Discharge Recommendations Home with 21/11 Assist Available,Home Health Transportation Needs at Discharge Private Vehicle
[2023-10-26 09:32] VITALS: BP 126/55; PULSE 60
[2023-10-26] MEDS: FUROSEMIDE 20 MG TABLET PO (09:32)
[2023-10-26] MEDS: METOPROLOL ER 25 MG TABLET 12.5 MG PO (09:32)
[2023-10-26] MEDS: DOCUSATE 100 MG CAPSULE PO (09:34)
[2023-10-26] MEDS: POTASSIUM CHLORIDE 10 MEQ TAB PO (09:34)
[2023-10-26] MEDS: APIXABAN 5 MG TABLET PO (09:34)
[2023-10-26] MEDS: IBUPROFEN 400 MG TABLET PO (10:00)
--- NOTE | 2023-10-26 10:00 | OT.IP.TRT ---
Current Diagnoses Unilateral primary osteoarthritis, right hip (10/24/23) Surgery Performed Operation Date: 10/24/23 07:45 Actual Procedures p Total Hip Arthroplasty(Right) - Marcy Cohn MD Occupational Therapy Treatment Note M2 OT-IP Current Condition Start: 10/24/23 15:13 Freq: Status: Active Protocol: Document 10/24/23 15:13 [facility] (Rec: 10/24/23 15:29 [facility] [id number]) Occupational Therapy Current Condition Current Condition Evaluation Date 10/24/23 Treatment Diagnosis S/P R ALEXANDER Posterior approach Diagnosis Onset Date 10/24/23 Post Operative Precautions Posterior Hip Precautions No Hip Flexion > 90 degrees,No Hip Internal Rotation,No Hip Adduction M3 OT- IP Subjective and Pain Start: 10/24/23 15:13 Freq: Status: Active Protocol: Document 10/26/23 10:03 [facility] (Rec: 10/26/23 10:09 [facility] [id number]) OT- Subjective Occupational Therapy Visit Type Type Treatment Note Visit Start Time 09:35 Visit Stop Time 10:00 Occupational Therapy Visit Comments Patient Comments Pt wanting to use the bathroom and get dressed. Patient/Caregiver Goals To go home. OT Pain Assessment Pain When Pain Assessed At Rest Pain Present Pain Present Pain Reported Location Right Hip Intensity 2 Scale Used Numeric (0 - 10) M4 OT- IP ADL's Start: 10/24/23 15:13 Freq: Status: Active Protocol: Document 10/26/23 10:03 [facility] (Rec: 10/26/23 10:09 [facility] [id number]) OT ANS-Smll-Spesrqh General Evaluation Self-Feeding Ability Independent OT ADL-Grooming General Evaluation Grooming Ability Independent OT ADL-Oral Care General Eval Oral Care Ability Independent OT ADL-Dressing General Eval Lower Body Dressing Ability Independent Comments OT Dressing Comments Pt able to use the service desk specialist to assist with LB dressing needs with good safety. OT ADL-Toileting General Evaluation Toileting Ability Standby Assistance Comments OT Toileting Comments Distant SBA and pt able to do on her own with good safety. OT ADL-Bathing Comments OT Bathing Comments Pt states to do at home, suggested pt to have a bath aid for safety. M5 OT- IP IADL's Start: 10/24/23 15:13 Freq: Status: Active Protocol: Document 10/24/23 15:13 [facility] (Rec: 10/24/23 15:29 [facility] [id number]) OT-Instrumental Activities of Daily Living Deficits IADL Deficits Identified Deficits Home Safety Awareness Awareness of Need for Assistance at Home Good Awareness Home Safety Comments Pt aware at this time will need more assist then her elderly brother who uses a cane is able to provide for her at this time. Meal Preparation Meal Preparation Caregiver Provides Assist Clinical Exercise Specialist Clinical Exercise Specialist Caregiver Provides Assist M6 OT- IP Functional Cognition Start: 10/24/23 15:13 Freq: Status: Active Protocol: Document 10/26/23 10:03 [facility] (Rec: 10/26/23 10:09 [facility] [id number]) Cognitive Factors Limiting Selfcare Function Cognitive Comments Cognitive Assessment Comments Pt able to follow all her precautions well for ADl and mobility needs. M7 OT- IP Mobility and Balance Start: 10/24/23 15:13 Freq: Status: Active Protocol: Document 10/26/23 10:03 [facility] (Rec: 10/26/23 10:09 [facility] [id number]) OT-Transfer Assessment Sit to and From Stand Sit to and from Stand Independent Transfers Transfer Ability Standby Assistance Comments Mobility Comments Pt independent to stand and follow her hip precautions and distant SBA while walking in the room. OT- Balance Assessment Sitting Balance and Reactions Static Sitting Balance Ability Normal Dynamic Sitting Balance Ability Normal Standing Balance and Reactions Static Standing Balance Ability Good Dynamic Standing Balance Ability Good M8 OT- IP Objective Assessments Start: 10/24/23 15:13 Freq: Status: Active Protocol: Document 10/24/23 15:13 [facility] (Rec: 10/24/23 15:29 [facility] [id number]) OT Gross Range of Motion Upper Extremity Range of Motion Assessment Within Functional Limits OT Strength Upper Extremity Strength Assessment Within Functional Limits M9 OT- IP Assessment and Plan Start: 10/24/23 15:13 Freq: Status: Active Protocol: Document 10/26/23 10:03 [facility] (Rec: 10/26/23 10:09 [facility] [id number]) OT Summary Assessment and Plan Potential Rehabilitation Potential Excellent Analytic Complexity at Evaluation Moderate Summary OT Impairments Pain,Functional Mobility, Bathing,Shower Transfers Progress Towards Goals Progressing Toward Goals Assessment Summary Pt able to get dressed and use the toilet to have a bowel movement with distant SBA today. Pt is well aware to call her brother for assist if needed. Pt states feels confident to be able to go home and be able to follow her hip precautions now. Pt go home with 24/7 available assist and home health including a bath aid. Goals Bathing Goal Standby Assistance Shower Transfer Goal Independent Days to Meet Goals 3 Frequency of Treatment Frequency Of Treatment Once a Day Treatment Plan OT Treatment Plan ADL Training,Functional Mobility Discharge Recommendations OT Discharge Recommendations Home with 24/7 Assist Available,Outpatient PT Transportation Needs at Discharge Private Vehicle
[2023-10-26 11:23] VITALS: BP 126/55; PULSE 60
--- NOTE | 2023-10-26 11:28 | PC.NURSE ---
Day shift: Discharge instructions gone over with patient and patient's brother. All questions answered, patient stated understanding. No PIV or tele. All belongings with patient. PCT Marcos escorted patient via wheelchair to exit.
== END 2023-10-26 11:29 | disposition home or self-care (01) ==
LOC: OR 06:16 → AC 10:52
PROVIDERS: Anesthesiology; PCP Nurse Practitioner Family; Referring Provider Orthopaedic Surgery; Visit Provider Orthopaedic Surgery
PROC: 0SR90JZ Replacement of Right Hip Joint with Synthetic Substitute, Open Approach (ICD-10-PCS; CPT 27130; principal; 2023-10-24 07:45)
DX: M16.11 Unilateral primary osteoarthritis, right hip (principal)
CPT/HCPCS: 27130; 36415; 72170; 73502; 84132; 85014; 85018; 97116; 97129; 97162; 97165; 97530; 97535; C1776; C9290; J0171; J0690; J1100; J2250; J2405; J2704; J3010; J3490